=== PATIENT | female | born 1970 | race Native Hawaiian/Other Pacific Islander ===

== ENCOUNTER 2018-11-20 04:22 | Inpatient (IN) | payer OTHER ==
[2018-11-20] VITALS (40 sets, daily range): BP systolic 117–192; BP diastolic 33–123
[~2018-11-20] VITALS: Ht 160 cm; Wt 111.0 kg
[~2018-11-20 04:22] MED LIST: ANTIVERT25 MG PO; CLONIDINE0.1 PO; GABAPENTIN 100100 MG PO; GLUCAGEN1 MG IM; LEVEMIR SUBQ; LIPITOR 20 MG T20 M1 PO; MIDODRINE HCL 55 M1 PO; NEURONTIN 300300 M1 PO; NORCO 5-325 TA1 EACH PO; ONDANSETRON HCL4 M2 PO; OXYCODONE HCL 55 MG PO; PHENERGAN 25 MG25 M1 PO; PLAVIX 75 MG TA75 M1 PO; PROMETHAZINE12.5 M1 PO; PROMS25 WY RECTAL; RENAL CAPS SOFTG1 MG PO; RENVELA800 MG PO; VITAMIN D 5050000 I1 PO; VOLTAREN GEL 1100 G2 TOP; ZANTAC 150MG T150 MG PO
[2018-11-20 05:03] LABS: BE(vivo) -2.8 mmol/L (-2 to +3); PCO2 51.1 mmHg (35.0-45.0); PO2 263.4 mmHg (80.0-100.0); sO2 99.5 % (92.0-98.0)
[2018-11-20 05:09] LABS: HEMATOCRIT 28.9 % (37.0-47.0); HEMOGLOBIN 9.4 gm/dL (12.0-15.0); MCH 31.6 pg (26.0-34.0); MCHC 32.4 g/dL (28.0-37.0); MCV 97.5 fL (80.0-100.0); PLATELET COUNT 234 thou/uL (150-400); RBC 2.96 mil/uL (4.20-5.00); WBC 20.6 thou/uL (4.0-11.0)
[2018-11-20 05:17] LABS: ANION GAP 12 mmol/L (7-16); BUN 50 mg/dL (7-18); CALCIUM 9.6 mg/dL (8.5-10.1); CHLORIDE 103 mmol/L (98-107); CO2 22 mmol/L (21-32); CREATININE 8.9 mg/dL (0.6-1.0); GLUCOSE 193 mg/dL (74-106); SODIUM 137 mmol/L (136-145)
[2018-11-20 05:19] LABS: POTASSIUM 6.4 mmol/L (3.5-5.1)
[2018-11-20 05:24] LABS: APTT 17.2 Seconds (24.5-32.8); PROTIME 9.2 Seconds (9.3-11.4)
--- NOTE | 2018-11-20 05:24 | NUR ---
CONTACTED FAMILY MEMBER LYLE BAEJAYMIESHINE, TOLD ABOUT PT TRANSFER AND ADMISSION WILL BE IN ICU
[2018-11-20 05:26] LABS: ALBUMIN 3.9 g/dL (3.4-5.0); MAGNESIUM 2.4 mg/dL (1.8-2.4); SGOT 36 U/L (15-37); SGPT 40 U/L (30-65); TOTAL BILIRUBIN 0.5 mg/dL (<0.1-1.0); TROPONIN-I <0.06 ng/mL (<0.06)
[2018-11-20] MEDS ORDERED: TYLENOL325 MG PO (05:31)
[2018-11-20 05:33] LABS: ABSOLUTE NEUTROPHILS 18.1 thou/uL (1.4-8.2)
[2018-11-20] MEDS ORDERED: ELIQUIS5 MG PO (05:34)
[2018-11-20 05:35] LABS: ANISOCYTOSIS 1+; PLATELET ESTIMATE NORMAL; POLYCHROMASIA 1+
[2018-11-20] MEDS ORDERED: VITAMIN B12-FO1 EAC1 PO (05:36)
[2018-11-20] MEDS ORDERED: REGLAN 10 MG TA10 MG PO (05:43)
[2018-11-20] MEDS ORDERED: MIRALAX17 GM PO (05:43)
[2018-11-20] MEDS ORDERED: NORVASC5 MG PO (05:44)
[2018-11-20] MEDS ORDERED: OMEPRAZOLE20 M1 PO (05:46)
[2018-11-20] MEDS ORDERED: ZAROXOLYN 5MG TA5 MG PO (05:48)
[2018-11-20] MEDS ORDERED: TOPROL XL25 MG PO (05:49)
[2018-11-20] MEDS ORDERED: VITAMIN D2000 UNIT PO (05:50)
[2018-11-20] MEDS ORDERED: ZOLOFT50 MG PO (05:52)
[2018-11-20] MEDS ORDERED: NOVOLOG100 UNIT/1 SUBQ (05:56)
--- NOTE | 2018-11-20 07:38 | EKG ---
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 : 1970 Requested By: Malachi Guthrie Order Number: [id number] MD: Roderick Montalvo Measurements Intervals [place] Rate: 91 P: 29 CA: 133 QRS: 41 QRSD: 89 T: 62 QT: 379 QTc: 467 Interpretive Statements Sinus rhythm Normal tracing No previous ECG available for comparison Electronically Signed On 11-20-2018 7:37:52 REMOTE SENSING ADVISOR by Roderick Montalvo [email or web address] ��������������������������������������������� <ELECTRONICALLY SIGNED> ���������������������������������������� By: Roderick Montalvo MD, [facility] ��������������������������������������������� 11/20/18 0737 0431 0431 Roderick Montalvo MD, FACC /EPI
--- NOTE | 2018-11-20 09:00 | NUR ---
PATIENT ARRIVED FROM ED ON BIPAP WITH ED STAFF. SHE WAS TRANSFERED TO THE ICU BED WITHOUT COMPLICATIONS, PLACED ON ICU MONITORING. PHYSICIAN HERE TO EVALUATE PATIENT AND DIALYSIS PERSONELL WAITING TO INITIATE DIALYSIS. NURSE TO CONTINUE TO MONITOR PATIENT STATUS.
--- NOTE | 2018-11-20 10:44 | NUR ---
PT TO CT PER RN X 2 AND RESPIRATORY
--- NOTE | 2018-11-20 11:25 | HC ---
[facility] [place] [address] CONSULTATION Name: AYLIN MORALES Room #: 246-P ADM IN M.R.#: [id number] Admission: 11/20/18 ������������������ Attend Phys: Roby Sheets MD Discharge: ������������������ Date of : 68 Report #: [id number] THIS REPORT FOR: //name// CC: Roby Sheets [facility] physician/PCP Daljit Car REASON FOR CONSULTATION: End-stage renal disease, volume overload and hyperkalemia. HISTORY OF PRESENT ILLNESS: The patient is a assisted patient, became short winded, was brought to the Emergency Room, was found to have hyperkalemia, hypertension and shortness of air, felt to be at least partially due to volume overload. She is due for dialysis. She is admitted to the ICU for emergent dialysis. PAST MEDICAL HISTORY: End-stage renal disease, diabetes, hypertension, previous DVT and pulmonary emboli. CT scan today does not show any evidence of pulmonary emboli. MEDICATIONS: List includes insulin, omeprazole 20 mg per day, sevelamer 4 tablets with each meal, metoprolol succinate 50 mg daily, vitamin D3 2000 units daily, Eliquis 5 mg b.i.d., multiple vitamins, atorvastatin 20 mg per day, metoclopramide 10 mg before meals and at bedtime, amlodipine 5 mg per day and MiraLax daily p.r.n. SOCIAL HISTORY: Apparently originally born in I believe [place]. I really do not get much history from her as she is on BiPAP and cannot really communicate very well. She lives in extended care facility. Apparently, there are psychosocial issues. REVIEW OF SYSTEMS: Again, cannot be taken. FAMILY HISTORY: Deferred. PHYSICAL EXAMINATION: GENERAL: This is a short, overweight young lady on BiPAP. Does follow simple commands. SKIN: Unremarkable. SKELETAL: Obese. HEENT: Extraocular movements are full. BiPAP mask in place. NECK: Supple. CHEST: Shows coarse breath sounds. HEART: Regular. ABDOMEN: Soft, nontender. Left arm fistula looks good. EXTREMITIES: There is no peripheral edema. Pulses intact. [facility] [address] [place] [address] CONSULTATION Name: AYLIN MORALES Room #: 246-P [facility] IN .R.#: [id number] Admission: 11/20/18 ������������������ Attend Phys: Roby Sheets MD Discharge: ������������������ Date of : 68 Report #: [id number] LABORATORY DATA: Sodium 137, potassium 6.4, chloride 103, bicarbonate 22, creatinine 8.9, BUN 50. Hemoglobin 9.4, white count 20.6. ASSESSMENT AND PLAN: 1. End-stage renal disease. Will need dialysis emergently. There is a component of volume overload. We will take 3 liters volume off of her. 2. Possible aspiration pneumonia. 3. Hyperkalemia. Dialyze on a 2 K bath. 4. Diabetes mellitus with history of peripheral neuropathy. 5. History of deep venous thrombosis and pulmonary emboli, on Eliquis. ��������������������������������������������� <ELECTRONICALLY SIGNED> ���������������������������������������� By: Daljit Car MD ��������������������������������������������� 11/20/18 1125 0843 1105 Daljit Car MD /nt
--- NOTE | 2018-11-20 14:26 | 2DMMODE ---
[facility] [address] [place] [address] 2 D/M-MODE ECHOCARDIOGRAM Name: AYLIN MORALES Room #: 246-P ADM IN M.R.#: [id number] ������������� Admission: 11/20/18 ������������� Attend Phys: Domingo Montes Discharge: ��� ������������� ��� Date of : 68 Date of Service: 11/20/18 1425 �� Report #: [id number] �������� ��������������������������������������������[id number] THIS REPORT FOR: //name// APPROVED REPORT Study performed: 11/20/2018 12:36:57 EXAM: Comprehensive 2D, Doppler, and color-flow Echocardiogram Patient Location: Bedside Room #: 246 Status: routine BSA: 2.16 HR: 83 bpm BP: 143/61 mmHg Rhythm: NSR Other Information Study Quality: Adequate Technically limited study due to inability to position patient. Risk Factors: Cardiac Risk Factors: HTN, DM Indications Congestive Heart Failure Respiratory Failure ESRD 2D Dimensions IVSd: 12.35 (7-11mm) LVOT Diam: 19.00 (18-24mm) LVDd: 45.77 mm PWd: 12.43 (7-11mm) Ascending Ao: 25.70 (22-36mm) LVDs: 29.97 (25-40mm) Aortic Root: 24.23 mm LV Single Plane 4CH: 55.07 % LV Single Plane 2CH: 54.76 % Biplane EF: 55.4 % Volumes Left Atrial Volume (Systole) Single Plane 4CH: 46.89 mL Single Plane 2CH: 55.69 mL LA ESV Index: 28.00 mL/m2 Aortic Valve [facility] [address] [place] [address] 2 D/M-MODE ECHOCARDIOGRAM Name: AYLIN MORALES Room #: 246-P [facility] IN [facility]#: [id number] ������������� Admission: 11/20/18 ������������� Attend Phys: Domingo Montes Discharge: ��� ������������� ��� Date of : 68 Date of Service: 11/20/18 1425 �� Report #: [id number] �������� ��������������������������������������������[id number] AoV Peak Sg.: 1.60 m/s AO Peak Gr.: 10.28 mmHg LVOT Max P.46 mmHg LVOT Max V: 0.93 m/s WESLEY Vmax: 1.73 cm2 Mitral Valve E/A Ratio: 1.2 MV Decel. Time: 211.43 ms MV E Max Sg.: 1.01 m/s MV A Sg.: 0.85 m/s MV PHT: 61.32 ms IVRT: 59.98 ms TDI E/Lateral E': 12.63 E/Medial E': 12.63 Medial E' Sg.: 0.08 m/s Lateral E' Sg.: 0.08 m/s Pulmonary Vein P Vein S: 0.57 m/s P Vein A: 0.25 m/s P Vein D: 0.49 m/s P Vein A Dur.: 65.7 msec P Vein S/D Ratio: 1.16 Tricuspid Valve RAP Estimate: 7.00 mmHg Left Ventricle The left ventricle is normal size. There is normal LV segmental wall motion. There is normal left ventricular wall thickness. Left ventricular systolic function is normal. The left ventricular ejection fraction is within the normal range. LVEF is 55-60%. Right Ventricle The right ventricle is normal size. The right ventricular systolic function is normal. Atria The left atrium size is normal. The right atrium size is normal. Aortic Valve The aortic valve is normal in structure. No aortic regurgitation is present. There is no aortic valvular stenosis. Mitral Valve The mitral valve is normal in structure. [place] [address] 2 D/M-MODE ECHOCARDIOGRAM Name: AYLIN MORALES Room #: 246-P [facility] IN .R.#: [id number] ������������� Admission: 11/20/18 ������������� Attend Phys: Domingo Montes Discharge: ��� ������������� ��� Date of : 68 Date of Service: 11/20/18 1425 �� Report #: [id number] �������� ��������������������������������������������[id number] regurgitation noted. No evidence of mitral valve stenosis. Tricuspid Valve The tricuspid valve is normal in structure. Trace tricuspid regurgitation. Unable to assess PA pressure. Pulmonic Valve The pulmonary valve is normal in structure. There is no pulmonic valvular regurgitation. Great Vessels The aortic root is normal in size. IVC is normal in size and collapses >50% with inspiration. Pericardium There is no pericardial effusion. <Conclusion> The left ventricle is normal size. There is normal left ventricular wall thickness. Left ventricular systolic function is normal. The right ventricle is normal size. The left atrium size is normal. The aortic valve is normal in structure. There is no mitral valve regurgitation noted. Trace tricuspid regurgitation. ��������������������������������������������� <ELECTRONICALLY SIGNED> ���������������������������������������� By: Dm Au MD ��������������������������������������������� 11/20/18 1425 1425 1425 Dm Au MD /INF
--- NOTE | 2018-11-20 15:29 | NUR ---
CM ASSESSMENT: CASE OPENED FOR DC PLANNING. CLINICAL INFO REVIEWED. PT IS LTC RESIDENT AT [place] AND DIALYZES AT [facility] . UPDATE TO FACILITY ADMISSIONS AND WILL PLAN FOR RETURN TO [place] WHEN MEDICALLY READY.
--- NOTE | 2018-11-20 16:30 | NUR ---
PT. RESIDES AT [place] FAXED CLINICAL UPDATE TO FACILITY AND LEFT MSG. WITH ANSELMO IN ADM. THAT PT. IS ON BIPAP. DCP TO FOLLOW.
--- NOTE | 2018-11-20 17:00 | NUR ---
PATIENT AWAKE AND ALERT. VITAL SIGNS DOCUMENTED. ON A COUPLE LITERS OF OXYGEN SHE IS SATURATING WELL ON O2 SATURATION MONITOR. SHE HAS HAD SOME EPISODES OF INCONTENENCE AND HAS BEEN CLEANED UP. SHE REPOSITIONS SELF IN BED INTERMITTENTLY. ASSESSMENTS DOCUMENTED BY OTHER RN. SHE RECEIVED DIALYSIS TODAY. PAIN WAS EXPRESSED, HOWEVER SHE EXPRESSED THAT IT IS LESS SINCE DIALYSIS FINISHED. PLAN OF CARE IS TO CONTINUE TO MONITOR PATIENT VITAL SIGNS PER PROTOCOL, ASSESSMENTS PER PROTOCOL, MONITOR LABS ORDERED, AND HAVE PATIENT USE BIPAP ORDERED WHEN SLEEPING. PATIENT PROGRESSING TOWARDS PLAN OF CARE.
--- NOTE | 2018-11-20 18:56 | NUR ---
PATIENT TRANSFERED TO [facility], WITH ASSIST OF TWO NURSES, BANK OFFICER, O2 SAT MONITOR, AND ALL PATIENT BELONGINGS. SHE TOLERATED TRANSFER WELL. NURSE WAS INFORMED OF OUR ARRIVAL AND ANOTHER STAFF MEMBER HELPED US TRANSFER PATIENT TO BED IN ROOM. OTHER STAFF MEMBER WAS PLACING PATIENT ON BANK OFFICER UPON OUR DEPATURE FROM ROOM.
--- NOTE | 2018-11-20 20:22 | NUR ---
PATIENT TRANSFERED TO ICU STRIP, ASSESSMENT,VITALS DONE PRIOR. M. 2022.
[2018-11-21] VITALS (7 sets, daily range): BP systolic 139–196; BP diastolic 52–86
--- NOTE | 2018-11-21 05:26 | NUR ---
PATIENT IS ALERT AND ORIENTED. PATIENT IS SBA TO THE BSC PATIENT IS NSR ON TELE. PATIENT IS MWF DIALYSIS. PATIENTS LBM WAS THE 17TH. PATINET IS ON BIPAP HS AND 2L NC DURING THE DAY. PATIENT IS OLIURIC. PATIENT DENIES PAIN. PATIENT IS RESTING COMFORTABLEY IN BED. WCM. PATIENT IS PROGRESSING TO GOALS.
[2018-11-21 06:06] LABS: HEMATOCRIT 28.7 % (37.0-47.0); HEMOGLOBIN 9.6 gm/dL (12.0-15.0); MCH 32.6 pg (26.0-34.0); MCHC 33.5 g/dL (28.0-37.0); MCV 97.3 fL (80.0-100.0); PLATELET COUNT 162 thou/uL (150-400); RBC 2.95 mil/uL (4.20-5.00); RDW 14.8 % (10.5-14.5); WBC 10.7 thou/uL (4.0-11.0)
[2018-11-21 06:17] LABS: ALBUMIN 3.5 g/dL (3.4-5.0); CALCIUM 9.2 mg/dL (8.5-10.1); PHOSPHORUS 5.1 mg/dL (2.5-4.9); POTASSIUM 5.1 mmol/L (3.5-5.1)
[2018-11-21 06:19] LABS: CREATININE 6.4 mg/dL (0.6-1.0)
[2018-11-21 07:03] LABS: ABSOLUTE NEUTROPHILS 9.2 thou/uL (1.4-8.2); MYELOCYTES 1 %
--- NOTE | 2018-11-21 09:22 | H ---
[facility] [place] [address] HISTORY AND PHYSICAL Name: AYLIN MORALES Room #: 354-P ADM IN M.R.#: [id number] Admission: 11/20/18 ������������������ Attend Phys: Roby Sheets MD Discharge: ������������������ Date of : 68 Report #: [id number] THIS REPORT FOR: //name// CC: Roby KOROMA physician/PCP Daljit Car DATE OF SERVICE: 11/20/2018 CHIEF COMPLAINT: Shortness of breath. HISTORY OF PRESENT ILLNESS: The patient is a 48-year-old female transferred from [facility] for evaluation of shortness of breath. She awoke early this morning complaining of trouble breathing to the nursing staff, it is unclear vitals or oxygen saturations at that point. She was directed to the ER. She has had a history of PE and the patient was concerned she was having a recurrence. There have been no reports of nausea or vomiting. PAST MEDICAL HISTORY: End-stage renal disease, diabetes type 2, PE a number of years ago. She is taking anticoagulation with Eliquis, diabetic gastroparesis, anemia of chronic disease, some mild cognitive impairment. PAST SURGICAL HISTORY: Unknown. FAMILY HISTORY: Unknown. SOCIAL HISTORY: She has been living at the [facility] for about 3 years or longer. Prior to that, she apparently bounced in and out of facilities with family. She has had multiple hospitalizations at [facility] for nausea and vomiting. ALLERGIES: None. MEDICATIONS: Renvela, Levemir, Tylenol, Eliquis, Reglan, MiraLax, Norvasc, metoprolol, Zaroxolyn, Zoloft, NovoLog, Zantac, ProAmatine, Antivert, Lipitor, gabapentin. REVIEW OF SYSTEMS: She denies headache, chest pain, abdominal pain, nausea, vomiting, diarrhea, constipation, dysuria, or syncope. OBJECTIVE: VITAL SIGNS: Temperature 36.7, pulse 78, respirations 17, blood pressure 156/48, pulse ox 100% on BiPAP. GENERAL: She is awake and alert. She recognized me. She is undergoing dialysis, echocardiogram and has BiPAP in place. HEAD AND NECK: Unremarkable. [facility] [address] [place] [address] HISTORY AND PHYSICAL Name: AYLIN MORALES Room #: 354-P [facility] IN [facility]#: [id number] Admission: 11/20/18 ������������������ Attend Phys: Roby Sheets MD Discharge: ������������������ Date of : 68 Report #: [id number] LUNGS: Clear. HEART: Regular. ABDOMEN: Soft, normoactive bowel sounds. EXTREMITIES: No edema. LABORATORY DATA: Reviewed. CT of the chest shows no PE. There may be some early pneumonitis. ASSESSMENT: 1. Healthcare-associated pneumonia. 2. Acute hypercapnic respiratory failure. 3. Hyperkalemia. 4. End-stage renal disease. 5. Anemia of chronic disease. 6. Diabetes type 2. 7. History of diabetic gastroparesis. 8. History of pulmonary embolus. 9. History of anticoagulation use. PLAN: She will continue ICU care. We will ask the Pulmonary, Renal, and ID services to see her. We will continue her home medications. ��������������������������������������������� <ELECTRONICALLY SIGNED> ���������������������������������������� By: Roby Sheets MD ��������������������������������������������� 11/21/18 0922 1320 1433 Roby Sheets MD /nt
[2018-11-21 10:11] LABS: HEPATITIS B SURFACE AG Negative (Negative)
--- NOTE | 2018-11-21 10:49 | NUR ---
padma called cathy to see if patient is from their skilled or shelter care. patient is from their ltc and will dc most likely tomorrow.
--- NOTE | 2018-11-21 15:15 | NUR ---
SW reviewed chart and spoke with nursing. Pt was transferred to [facility] from ICU and is progressing towards goals for discharge. Discharge back to [place] is anticipated for tomorrow. network planner updated [place]. MEGGAN met with pt at bedside. Introduced role of SW. Pt is alert/orientated x 4. Pt reports she has lived at [place] for the past 3 years. Pt goes to dialysis -- at the [facility] at [place]. Pt is agreeable with plan to return to [place] tomorrow. MEGGAN left voice message for pt's niece, Brendon ([phone]) and spoke with pt's son, Barbie ([phone]) to provide update and notify of anticipated discharge. Plan is for pt to d/c to [place] tomorrow. MEGGAN is following to assist as needed with discharge planning.
--- NOTE | 2018-11-21 18:13 | HC ---
[facility] [place] [address] CONSULTATION Name: AYLIN MORALES Room #: 354-P ADM IN M.R.#: [id number] Admission: 11/20/18 ������������������ Attend Phys: Roby Sheets MD Discharge: ������������������ Date of : 68 Report #: [id number] THIS REPORT FOR: //name// CC: Roby Sheets [facility] physician/PCP Daljit Car TYPE OF REPORT: Infectious diseases consultation. REASON FOR CONSULTATION: I was asked to evaluate concerning respiratory failure, suspected healthcare-associated pneumonia and end-stage renal disease. HISTORY OF PRESENT ILLNESS: The patient was a 48-year old with a history of pulmonary emboli, end-stage renal disease and hypertension; who presents with acute onset of shortness of breath. No definite chest pain. No fever or chills. Hemodynamically, she has been stable, actually has been more hypertensive. She has been on anticoagulation with Eliquis. No cough. No hemoptysis. Now on BiPAP with improved oxygenation. Denies any nausea, vomiting or diarrhea. No abdominal pain. Undergoes dialysis 3 days a week. She has had no travel outside of her long-term. Unclear when her last pulmonary embolus was. REVIEW OF SYSTEMS: Ten-point review was negative other than what is described above. ALLERGIES: None. MEDICATIONS: As noted on her MAR, having been given vancomycin and Zosyn in the Emergency Room. PAST MEDICAL HISTORY: Includes hypertension, end-stage renal disease and pulmonary emboli. FAMILY HISTORY: Noncontributory. SOCIAL HISTORY: Nonsmoker. No significant alcohol intake. PHYSICAL EXAMINATION: VITAL SIGNS: Temperature 98 degrees, pulse 78, blood pressure 156/48 and respiratory rate 17 on 60% BiPAP. SKIN: Without rash or decubitus. HEENT: Eyes, without scleral icterus. No conjunctivitis. Mouth, without mucositis. NECK: Supple. LUNGS: Crackles in the bases, mostly on the right. No consolidation. HEART: Regular without appreciable murmur, gallop or rub. ABDOMEN: Obese, soft and nontender. No hepatosplenomegaly or mass appreciated. [facility] [address] [place] [address] CONSULTATION Name: AYLIN MORALES Room #: 354-P [facility] IN M.R.#: [id number] Admission: 11/20/18 ������������������ Attend Phys: Roby Sheets MD Discharge: ������������������ Date of : 68 Report #: [id number] GENITOURINARY: External genitalia without mass lesion or rash. No rectal examination performed. The patient was on dialysis via left upper extremity AV fistula, which was functioning well. The area was nontender. No palpable adenopathy. NEUROLOGICAL: Cranial nerves intact. Strength in her upper and lower extremities was normal. Sensation to touch was normal in both upper and lower extremities. LABORATORY STUDIES: Chest x-ray shows predominant right-sided infiltrate, mostly in the right base. Some atelectasis. Increased vascular pattern. BNP is 20,748. Hemoglobin 9.4; WBC 20.6 and platelet count 234,000. INR 1. Sodium 137, potassium 6.4, bicarbonate 22, creatinine 8.9 and alkaline phosphatase 193. ALT 40. ABG on 60% BiPAP, pO2 was 263, pCO2 of 51 and pH 7.29. Blood cultures are negative to date. IMPRESSION: 1. A 48-year-old with respiratory failure, bilateral infiltrates, right greater than left and history of pulmonary emboli. Congestive heart failure versus healthcare-associated pneumonia versus pulmonary emboli would be most likely cause of her presentation. She does have a leukocytosis, which would fit best with pneumonia. No other source evident by history or exam. 2. End-stage renal disease. 3. Hypertension. 4. Previous pulmonary emboli, now on anticoagulation. RECOMMENDATIONS: We will continue ICU support and BiPAP as needed for control of her respiratory status. We would image by CAT scan to further evaluate her pulmonary status. Await cultures of blood, urine and sputum. Serial chest x-ray and CBC. We will repeat her chest x-ray after dialysis. Echocardiogram with the above unremarkable. ��������������������������������������������� <ELECTRONICALLY SIGNED> ���������������������������������������� By: Ben Rothman MD ��������������������������������������������� 11/21/18 1813 1010 09 Ben Rothman MD /nt
--- NOTE | 2018-11-21 18:30 | NUR ---
PT PROGRESSING WELL. UP TO THE CHAIR FOR SEVERAL HOURS. EATING AND DRINKING OK W/O NAUSEA/VOMITING. PLAN FOR DC TOMORROW.
--- NOTE | 2018-11-22 01:51 | NUR ---
PATIENT IS ALERT AND ORIENTED. PATIENT IS ON 3L NC DURING THE DAY. PATIENTS LBM WAS THE 19TH. PATIENT HAS A LT AV FISTULA. PATIENT IS ACHS BUT ONLY HAS INSULING AC. PATIENT IS DIALYSIS MWF. PATIENT IS PENDING DISCHARGE TODAY. PATIENT DENIES PAIN. WCM. PATIENT IS PROGRESSING TO GOALS.
[2018-11-22 04:38] VITALS: BP 176/77
[2018-11-22 04:47] LABS: ALBUMIN 3.1 g/dL (3.4-5.0); CALCIUM 9.3 mg/dL (8.5-10.1); PHOSPHORUS 4.9 mg/dL (2.5-4.9); POTASSIUM 5.1 mmol/L (3.5-5.1)
[2018-11-22 04:50] LABS: CREATININE 8.1 mg/dL (0.6-1.0); HEMATOCRIT 26.2 % (37.0-47.0); HEMOGLOBIN 8.5 gm/dL (12.0-15.0); MCH 31.9 pg (26.0-34.0); MCHC 32.6 g/dL (28.0-37.0); MCV 97.6 fL (80.0-100.0); RBC 2.68 mil/uL (4.20-5.00); WBC 9.8 thou/uL (4.0-11.0)
[2018-11-22] MEDS ORDERED: ACETAMINOPHEN325 M1 PO (11:47)
--- NOTE | 2018-11-22 13:41 | NUR ---
DISCHARGE NOTE: MEGGAN reviewed chart and spoke with nursing. Pt has discharge orders to return to [place] today. Pt had dialysis this morning. MEGGAN faxed discharge orders/summary to [place]. W/c van transportation will grain picker pt between [phone] today. MEGGAN met with pt at bedside to provide update. Pt is aware and agreeable with discharge plan. MEGGAN faxed clinical info/flow sheet/discharge order/summary to the [facility]. MEGGAN spoke with charge nurse at the dialysis clinic to notify of pt's discharge. Pt will resume regular outpatient dialysis on Tuesday. Chart copy ordered. Nursing provided with number to call report. No additional SW needs identified at this time, but is available to assist should needs arise.
--- NOTE | 2018-11-22 16:32 | NUR ---
Assumed care of Pt at 0700. 3L taken off this AM during dialysis. pt breathing comfortably on 2L NC. up w/ 1 SBA to BSC. voicing no concerns. d/c back to [place] planned for today. report called to facility to receiving RN. pt progressing toward poc goals.
--- NOTE | 2018-11-23 10:42 | D ---
[facility] [place] [address] DISCHARGE SUMMARY Name: AYLIN MORALES Room #: 354-P [facility] M.R.#: [id number] Admission: 11/20/18 ������������������ Attend Phys: Roby Sheets MD Discharge: 11/22/18 ������������������ Date of : 68 Report #: [id number] THIS REPORT FOR: //name// CC: Roby Sheets [facility] physician/PCP Daljit Car FINAL DIAGNOSES: 1. Acute hypercapnic hypoxic respiratory failure. 2. Pulmonary edema. 3. Hypertension. 4. End-stage renal disease. 5. Diabetes type 2. 6. Diabetic gastroparesis. HOSPITAL COURSE: The patient was admitted with shortness of breath with a working diagnosis of aspiration pneumonia; however, her ABG revealed more of a hypercapnic hypoxic respiratory failure and x-ray was more consistent with pulmonary edema. She responded significantly with her routine dialysis session. Her other medications were continued from home. I had the Pulmonary and Renal service follow her. Ultimately, medical opinion was that this was more of a pulmonary edema situation rather than infection. There were no reports from the patient or the facility of vomiting or aspiration. She was weaned back to her 2 liters nasal cannula and was back in her normal state. PHYSICAL EXAMINATION: GENERAL: On the day of discharge, she had completed dialysis and her vital signs were stable. She was alert and oriented to situation. LUNGS: Clear. HEART: Had regular sounds. ABDOMEN: Soft with normal bowel sounds. EXTREMITIES: Showed no edema. DISPOSITION: She will return to [facility] with diabetic renal diet. I will follow her stay there. Therapies as indicated, oxygen at 2 liters. I have signed her transfer medication list. ��������������������������������������������� <ELECTRONICALLY SIGNED> ���������������������������������������� By: Roby Sheets MD ��������������������������������������������� 11/23/18 1042 1220 1227 Roby Sheets MD /nt
== END 2018-11-22 18:16 | DRG 193 ==
LOC: ER 04:22 → 3W 05:16 → EROBS 05:16 → ICU 05:16 → 3W 18:36
PROVIDERS: Emergency Medicine; Internal Medicine Nephrology; Specialist; ADMIT Internal Medicine Geriatric Medicine
PROC: 5A1D70Z Performance of Urinary Filtration, Intermittent, Less than 6 Hours Per Day (ICD-10-PCS; principal; 2018-11-20)
PROC: 5A09357 Assistance with Respiratory Ventilation, Less than 24 Consecutive Hours, Continuous Positive Airway Pressure (ICD-10-PCS; principal; 2018-11-20)
PROC: 5A1D70Z Performance of Urinary Filtration, Intermittent, Less than 6 Hours Per Day (ICD-10-PCS; 2018-11-21)
PROC: 5A09357 Assistance with Respiratory Ventilation, Less than 24 Consecutive Hours, Continuous Positive Airway Pressure (ICD-10-PCS; 2018-11-21)
PROC: 5A09357 Assistance with Respiratory Ventilation, Less than 24 Consecutive Hours, Continuous Positive Airway Pressure (ICD-10-PCS; 2018-11-22)
DX: J18.9 Pneumonia, unspecified organism (principal); J96.02 Acute respiratory failure with hypercapnia; N18.6 End stage renal disease; J96.01 Acute respiratory failure with hypoxia; E66.2 Morbid (severe) obesity with alveolar hypoventilation; I13.2 Hypertensive heart and chronic kidney disease with heart failure and with stage 5 chronic kidney disease, or end stage renal disease; Z68.41 Body mass index [BMI] 40.0-44.9, adult; E11.22 Type 2 diabetes mellitus with diabetic chronic kidney disease; D63.8 Anemia in other chronic diseases classified elsewhere; D72.829 Elevated white blood cell count, unspecified; E11.42 Type 2 diabetes mellitus with diabetic polyneuropathy; K31.84 Gastroparesis; E11.43 Type 2 diabetes mellitus with diabetic autonomic (poly)neuropathy; E87.5 Hyperkalemia; I50.9 Heart failure, unspecified; Z86.711 Personal history of pulmonary embolism; Z79.01 Long term (current) use of anticoagulants; Z79.899 Other long term (current) drug therapy; Z79.4 Long term (current) use of insulin; Z86.718 Personal history of other venous thrombosis and embolism
CPT/HCPCS: 10779; 10879; 32100

== ENCOUNTER 2018-12-01 16:15 | Inpatient (IN) | payer OTHER ==
[~2018-12-01] VITALS: Ht 160 cm; Wt 58.5 kg
--- NOTE | ~2018-12-01 | HC ---
[facility] [address] CONSULTATION Name: AYLIN MORALES Room #: 418-P ADM IN M.R.#: [id number] Admission: 12/01/18 ������������������ Attend Phys: Roby Sheets MD Discharge: ������������������ Date of : 68 Report #: [id number] THIS REPORT FOR: //name// CC: Roby Sheets [facility] physician/PCP REASON FOR CONSULTATION: End-stage renal disease. HISTORY OF PRESENT ILLNESS: A 48-year-old with past medical history of end-stage renal disease, maintained on hemodialysis every Tuesday, Tuesday and Tuesday. She dialyzed yesterday and did not feel well after that. She runs a low blood pressure. She had some headache and dizziness and was sent for further evaluation and management. She was admitted to the hospital back on November for volume overload. She is known to have end-stage renal disease and has been maintained on hemodialysis over the last 1 year. Her end-stage renal disease was attributed to diabetes mellitus. PAST MEDICAL HISTORY: 1. Diabetes mellitus. 2. Hypertension. 3. End-stage renal disease, maintained on hemodialysis every Tuesday, Tuesday and Tuesday. 4. Pulmonary embolism. 5. Previous DVTs. MEDICATIONS: 1. Metoprolol. 2. Renvela. 3. Amlodipine. 4. Metolazone. 5. Clonidine. 6. Cholecalciferol. REVIEW OF SYSTEMS: GENERAL: No fever but significant for weakness. CARDIOVASCULAR: No chest pain or palpitation. PULMONARY: No cough or hemoptysis. GASTROINTESTINAL: No nausea, but she had some vomiting yesterday. SOCIAL HISTORY: She resides in [place]. No drug or alcohol abuse. PAST SURGICAL HISTORY: 1. AV dialysis access. 2. Back surgery. [facility] [address] [place] [address] CONSULTATION Name: AYLIN MORALES Room #: 418-P [facility] IN .R.#: [id number] Admission: 12/01/18 ������������������ Attend Phys: Roby Sheets MD Discharge: ������������������ Date of : 68 Report #: [id number] ALLERGIES: None. PHYSICAL EXAMINATION: GENERAL: She is alert and oriented. VITAL SIGNS: Blood pressure is 136/71. HEAD AND NECK: No jugular venous distention. CHEST: No crackles. CARDIOVASCULAR: No rub. ABDOMEN: Soft. No tenderness. LOWER EXTREMITIES: No edema. LABORATORY DATA: Laboratory values reviewed. She has a mild leukocytosis at 16.8. Blood sugar is elevated. She has a calcium of 11.1 yesterday. Total protein was also elevated. RADIOLOGICAL DATA: Chest x-ray with no infiltrate. CT with no acute changes. ASSESSMENT, IMPRESSION AND PLAN: 1. End-stage renal disease. 2. Hypotension. 3. Hypercalcemia. 4. Leukocytosis. 5. Discontinue some of her blood pressure medication. 6. Discontinue vitamin D, given her hypercalcemia. Primary team is addressing her leukocytosis. 7. Dialysis as usual every Tuesday, Tuesday and Tuesday. ��������������������������������������������� ���������������������������������������� By: ��������������������������������������������� 0746 28 Pablito Alvares MD /lloyd
[~2018-12-01 16:15] MED LIST changes: +ACETAMINOPHEN325 M1 PO; +ELIQUIS5 MG PO; +MIRALAX17 GM PO; +NORVASC5 MG PO; +NOVOLOG100 UNIT/1 SUBQ; +OMEPRAZOLE20 M1 PO; +REGLAN 10 MG TA10 MG PO; +TOPROL XL25 MG PO; +TYLENOL325 MG PO; +VITAMIN B12-FO1 EAC1 PO; +VITAMIN D2000 UNIT PO; +ZAROXOLYN 5MG TA5 MG PO; +ZOLOFT50 MG PO
--- NOTE | 2018-12-01 16:39 | NUR ---
ASSUMED PT CARE FROM [facility]
[2018-12-01 16:43] LABS: HEMATOCRIT 38.3 % (37.0-47.0); HEMOGLOBIN 12.9 gm/dL (12.0-15.0); MCH 32.3 pg (26.0-34.0); MCHC 33.6 g/dL (28.0-37.0); MCV 96.1 fL (80.0-100.0); RBC 3.99 mil/uL (4.20-5.00); RDW 14.1 % (10.5-14.5); WBC 16.8 thou/uL (4.0-11.0)
[2018-12-01 16:48] LABS: ANION GAP 12 mmol/L (7-16); BUN 27 mg/dL (7-18); CALCIUM 11.1 mg/dL (8.5-10.1); CHLORIDE 96 mmol/L (98-107); CO2 28 mmol/L (21-32); CREATININE 6.6 mg/dL (0.6-1.0); GLUCOSE 256 mg/dL (74-106); POTASSIUM 4.6 mmol/L (3.5-5.1); SODIUM 136 mmol/L (136-145)
[2018-12-01 16:58] LABS: ALBUMIN 4.9 g/dL (3.4-5.0); LIPASE 292 U/L (73-393); SGOT 23 U/L (15-37); SGPT 25 U/L (30-65); TOTAL BILIRUBIN 0.5 mg/dL (<0.1-1.0); TOTAL PROTEIN 9.5 g/dL (6.4-8.2); TROPONIN-I <0.06 ng/mL (<0.06)
[2018-12-01 18:06] VITALS: BP 158/77
[2018-12-01 18:07] LABS: URINE BILIRUBIN NEGATIVE (Negative); URINE BLOOD 2+ (Negative); URINE CLARITY SL CLOUDY; URINE COLOR YELLOW; URINE GLUCOSE-RANDOM* NEGATIVE (Negative); URINE KETONES NEGATIVE (Negative); URINE NITRITE-REFLEX NEGATIVE (Negative); URINE PROTEIN (DIPSTICK) 3+ (Negative); URINE UROBILINOGEN 0.2 E.U./dl (0.2-1.0)
[2018-12-01 18:10] LABS: URINE LEUKOCYTES-REFLEX 1+ (Negative)
[2018-12-01 18:33] LABS: CASTS None Seen /LPF (None Seen); CRYSTALS None Seen /LPF (None Seen); SQUAMOUS 0-3 Few /LPF (0-3); URINE RBC 0-2 Rare /HPF (0-2)
[2018-12-01 18:34] LABS: URINE WBC-REFLEX 6-15 Few /HPF (0-5)
[2018-12-01 20:00] VITALS: BP 117/81
--- NOTE | 2018-12-02 02:01 | NUR ---
PT ARRIVED ON UNIT 1900. PT ALERT AND ORIENTED. PT COMPLAINED OF N/V. PT HAD TWO EPISODESOF VOMITING AFTER ARRIVAL. NAUSEA RELEIVED WITH MEDICATION. PT ALSO COMPLAINS OF DIZZINESS. PT ON 2L NC. VSS. ASSESSMENT COMPLETED. ADMISSION COMPLETED. PT BLOOD SUGAR ELEVATED, 20U LANTUS ADMINISTERED. BRUIT AND THRILL PRESENT IN FISTULA TO DANIEL. PT CALL LIGHT AND PERSONAL BELONINGS WITHIN REACH. WILL CONTINUE POC UNTIL EOS.
[2018-12-02 04:26] VITALS: BP 136/71
[2018-12-02 07:47] VITALS: BP 96/49
--- NOTE | 2018-12-02 09:01 | NUR ---
ASSUMED CARE OF PT AT 0700. ASSESSMENT COMPLETED. A&O,X4. C/O DIZZINESS, MEDS GIVEN ORDERED. ACHS, INSULIN GIVEN PER SLIDING SCALE. LEFT UPPER ARM FISTULA, BRUIT AND THRILL PRESENT. LEFT LIMB ALERT BRACELET IN PLACE. 2 L NC, BASELINE OXYGEN USE AT HOME. PATIENT STATES THEY ARE FROM [facility]. POSSIBLE D/C TODAY. WILL CONTINUE TO MONITOR.
[2018-12-02 10:08] LABS: HEMATOCRIT 35.2 % (37.0-47.0); HEMOGLOBIN 11.6 gm/dL (12.0-15.0); MCH 31.9 pg (26.0-34.0); MCV 96.8 fL (80.0-100.0); RBC 3.64 mil/uL (4.20-5.00); RDW 14.6 % (10.5-14.5); WBC 15.1 thou/uL (4.0-11.0)
[2018-12-02 16:29] VITALS: BP 155/77
--- NOTE | 2018-12-02 19:11 | NUR ---
END OF SHIFT. PT SLEPT THE MAJORITY OF THE DAY. GOOD APPETITE NOTED. ACHS, INSULIN GIVEN ORDERED. C/O DIZZINESS. VSS.
[2018-12-02 20:00] VITALS: BP 92/54
[2018-12-03 04:37] VITALS: BP 163/92
--- NOTE | 2018-12-03 05:15 | NUR ---
ASSUMED PT CARE 1900. PT ALERT AND ORIENTED, DROWSEY. REASSESSMENT COMPLETED. PT STILL COMPLAINING OF DIZZINESS. PT ON 2L OF O2 VIA NC. VSS. PT CALL LIGHT AND PERSONAL BELONINGS WITHIN REACH, WILL CONTINUE POC UNTIL EOS.
[2018-12-03 07:25] VITALS: BP 162/76
--- NOTE | 2018-12-03 08:32 | H ---
[facility] [address] [place] [address] HISTORY AND PHYSICAL Name: AYLIN MORALES Room #: 418-P ADM IN M.R.#: [id number] Admission: 12/01/18 ������������������ Attend Phys: Roby Sheets MD Discharge: ������������������ Date of : 68 Report #: [id number] THIS REPORT FOR: //name// CC: Roby KOROMA physician/PCP DATE OF SERVICE: 12/01/2018 CHIEF COMPLAINT: Nausea and dizziness. HISTORY OF PRESENT ILLNESS: The patient is a 48-year-old female from [facility] who sent to the Emergency Room with complaints of nausea and vomiting and dizziness. She has end-stage renal disease and received her normal hemodialysis at [facility] yesterday morning. At the end of the procedure, she began to complain of nausea. By the time she returned to her room, she had some vomiting, just bile contents per reports. The nursing center called stating that she had been complaining of nausea and had several vomiting episodes over about a 3-hour time period post dialysis. For this reason, she was sent to the Emergency Room. This has been an intermittently ongoing problem for her at [facility]. She has had multiple admissions to [facility] with similar problems. She has had extensive GI workup in the past with no definitive diagnosis, although in the late 2018, there was a diagnosis of gastroparesis and Reglan was started. However, this has not completely controlled her symptoms. PAST MEDICAL HISTORY: End-stage renal disease, diabetes type 2, hypertension, anemia of chronic disease. She has a history of DVT and pulmonary embolus several years ago that predated her admission to [facility]. I do not have full records of those reports. She does use chronic anticoagulation with Eliquis. PAST SURGICAL HISTORY: AV fistula. FAMILY HISTORY: Unknown. SOCIAL HISTORY: No chronic alcohol or tobacco use. She has been living at [facility] for about 2-3 years. ALLERGIES: Please see the list. MEDICATIONS: Please see the nursing list. REVIEW OF SYSTEMS: She was complaining of dizziness. No chest pain, shortness of breath, abdominal pain, dysuria, myalgias, syncope, fall. PHYSICAL EXAMINATION: VITAL SIGNS: Nursing vital signs reviewed in the electronic record. [address] [address] HISTORY AND PHYSICAL Name: AYLIN MORALES Room #: 418-P [facility] IN ..#: [id number] Admission: 12/01/18 ������������������ Attend Phys: Roby Sheets MD Discharge: ������������������ Date of : 68 Report #: [id number] GENERAL: She was resting in bed, in no distress. HEAD AND NECK: Unremarkable. LUNGS: Clear. HEART: Regular. ABDOMEN: Soft, normoactive bowel sounds. EXTREMITIES: Showed no edema. NEUROLOGIC: Cranial nerves intact. Speech is fluent. She recognized me as her doctor. Global strength intact. PERTINENT LABORATORY DATA: Included white count of 16,000. Creatinine was elevated consistent with end-stage renal disease. ASSESSMENT: 1. Persistent nausea and vomiting. 2. Cystitis. 3. Hypertension. 4. Diabetes type 2. 5. End-stage renal disease. 6. Anemia of chronic disease. PLAN: Initially when I saw her this morning, she was feeling improved and tentative plans were to discharge home if she can tolerate a diet. However, according to nursing, she continues to complain of dizziness with movement in bed. Her white count is still elevated, but down to 15,000. A urine culture is pending. For now, continue hospitalization with medical management. ��������������������������������������������� <ELECTRONICALLY SIGNED> ���������������������������������������� By: Roby Sheets MD ��������������������������������������������� 12/03/18 0832 1325 1344 Roby Sheets MD /nt
[2018-12-03 14:28] LABS: HEMATOCRIT 35.6 % (37.0-47.0); HEMOGLOBIN 11.7 gm/dL (12.0-15.0); MCH 31.8 pg (26.0-34.0); MCHC 32.8 g/dL (28.0-37.0); MCV 97.1 fL (80.0-100.0); RBC 3.67 mil/uL (4.20-5.00); RDW 14.4 % (10.5-14.5); WBC 11.7 thou/uL (4.0-11.0)
[2018-12-03 16:00] VITALS: BP 178/70
--- NOTE | 2018-12-03 19:23 | EKG ---
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 Associate: ALISE : 1970 Requested By: Louise Molina Order Number: [id number] MD: Wilbur Simpson Measurements Intervals [place] Rate: 79 P: 41 ND: 138 QRS: 28 QRSD: 90 T: 65 QT: 409 QTc: 469 Interpretive Statements Sinus rhythm LVH by voltage Early transition Nonspecific ST-T wave changes Compared to ECG 11/20/2018 04:31:51 Left ventricular hypertrophy now present Electronically Signed On 12-03-2018 19:23:42 HEAD OF MAINTENANCE by Wilbur Simpson [email or web address] ��������������������������������������������� <ELECTRONICALLY SIGNED> ���������������������������������������� By: Wilbur Simpson MD ��������������������������������������������� 12/03/18 1923 1630 163 Wilbur Simpson MD /EPI
--- NOTE | 2018-12-03 20:13 | NUR ---
PT ASSESSED AT START OF SHIFT. HAD DIZZINESS THIS AM WHEN DR. NESS HERE BUT HAS SINCE STOPPED. MECLIZINE RESUMED. PT EATING AND DRINKING W/O NAUSEA. PLAN FOR DIALYSIS TOMORROW AND THEN DC.
[2018-12-03 20:49] VITALS: BP 171/82
[2018-12-04 00:51] VITALS: BP 135/67
--- NOTE | 2018-12-04 03:46 | NUR ---
ASSUMED PT CARE 1900. PT ALERT AND ORIENTED. VSS- BP ELEVATED, REASSESSED AT MIDNIGHT-SEE CHARTING. PT ON 2L O2 VIA NC. REASSESSMENT COMPLETED. PT CALL LIGHT AND PERSONAL BELONGINGS WITIN REACH. WILL OCNTINUE POC UNTIL EOS.
[2018-12-04 05:54] VITALS: BP 175/73
[2018-12-04 07:44] VITALS: BP 175/80
[2018-12-04] MEDS ORDERED: CIPRO250 M1 PO (13:23)
--- NOTE | 2018-12-04 14:03 | NUR ---
Assumed pt car at 7am.Pt left for hemodialysis at the beginning of shift and returned to room 4 hours later in stable condition.Assessment completed.vss. Dr Sheets here, dc order noted.Pt to be started on cipro po today related to uti.assistant center manager arranged for transfer to [place] at 1530 today.Report off to Gracia wagoner.Pt notified about dc .Will continue to monitor.
--- NOTE | 2018-12-04 14:31 | NUR ---
INITIAL ASSESSMENT: Pt evaluated for d/c planning needs. 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 She has dialysis MWF. Asked menu planner to make arrangements for pt return. No other needs identified.
--- NOTE | 2018-12-04 15:04 | NUR ---
PT. DISCHARGING TODAY BACK TO [facility] SKILLED. FAXED DC ORDERS/SUMMARY TO FACILITY AND SPOKE WITH ANSELMO IN ADM. SHE RECEIVED DC ORDERS AND SET UP TRANSPORT VIA [facility] FOR 0 TODAY. NOTIFIED FAMILY (VALERI) OF DISCHARGE AND TIME OF TRANSPORT. UNIT NOTIFIED AND CHART COPY PER US. RN TO CALL REPORT TO [phone].
--- NOTE | 2018-12-06 12:37 | D ---
[facility] [place] [address] DISCHARGE SUMMARY Name: AYLIN MORALES Room #: 418-P [facility] IN M.R.#: [id number] Admission: 12/01/18 ������������������ Attend Phys: Roby Sheets MD Discharge: 12/04/18 ������������������ Date of : 68 Report #: [id number] THIS REPORT FOR: //name// CC: Roby Sheets [facility] physician/PCP DATE OF SERVICE: 12/04/2018 FINAL DIAGNOSES: 1. Urinary tract infection. 2. Vertigo. 3. Nausea and vomiting. 4. End-stage renal disease. 5. Hypertension. 6. Diabetes type 2. HOSPITAL COURSE: She was admitted through the Emergency Room with persistent nausea and vomiting post-dialysis on her usual schedule day. With symptomatic treatment, she was improved overnight but was still experiencing symptoms of vertigo and dizziness even with movement in the bed, low dose meclizine was ordered. A urine culture was pending from ER and eventually grew an E. coli and VRE. Oral Cipro was initiated. She received hemodialysis on Tuesday. The Renal Service adjusted her antihypertensive regimen and felt there is likely a degree of autonomic instability. PHYSICAL EXAMINATION: GENERAL: On the day of discharge, she was awake and alert. Post-dialysis, eating without nausea or dizziness. VITAL SIGNS: Stable. LUNGS: Clear. HEART: Regular. ABDOMEN: Soft, normoactive bowel sounds. EXTREMITIES: No edema. DISPOSITION: She will return to [facility]. I signed and prepared all other orders. Renal diet. Activity as tolerated. I will follow her stay there. She will have Cipro for 5 more days at the facility. ��������������������������������������������� <ELECTRONICALLY SIGNED> ���������������������������������������� By: Roby Sheets MD ��������������������������������������������� 12/06/18 1237 1325 3067 Roby Sheets MD /nt
== END 2018-12-04 16:13 | DRG 73 ==
LOC: ER 16:15 → 4E 17:38 → EROBS 17:38 → 4E 18:44
PROVIDERS: Student in an Organized Health Care Education/Training Program; ADMIT Internal Medicine Geriatric Medicine
PROC: 5A1D70Z Performance of Urinary Filtration, Intermittent, Less than 6 Hours Per Day (ICD-10-PCS; principal; 2018-12-03)
DX: G90.8 Other disorders of autonomic nervous system (principal); N18.6 End stage renal disease; I12.0 Hypertensive chronic kidney disease with stage 5 chronic kidney disease or end stage renal disease; I95.9 Hypotension, unspecified; D63.8 Anemia in other chronic diseases classified elsewhere; B96.20 Unspecified Escherichia coli [E. coli] as the cause of diseases classified elsewhere; N30.90 Cystitis, unspecified without hematuria; E83.52 Hypercalcemia; E11.22 Type 2 diabetes mellitus with diabetic chronic kidney disease; E87.8 Other disorders of electrolyte and fluid balance, not elsewhere classified; J45.909 Unspecified asthma, uncomplicated; Z79.84 Long term (current) use of oral hypoglycemic drugs; Z79.4 Long term (current) use of insulin; Z86.718 Personal history of other venous thrombosis and embolism; Z86.711 Personal history of pulmonary embolism
CPT/HCPCS: 10084; 32100

== ENCOUNTER 2018-12-20 06:23 | Emergency (ER) | payer OTHER ==
[~2018-12-20] VITALS: Ht 160 cm; Wt 106.6 kg
[~2018-12-20 06:23] MED LIST changes: +CIPRO250 M1 PO
[2018-12-20 07:08] LABS: HEMATOCRIT 33.8 % (37.0-47.0); HEMOGLOBIN 11.3 gm/dL (12.0-15.0); MCH 32.4 pg (26.0-34.0); MCHC 33.5 g/dL (28.0-37.0); MCV 96.6 fL (80.0-100.0); RBC 3.5 mil/uL (4.20-5.00); WBC 8.4 thou/uL (4.0-11.0)
[2018-12-20 07:23] LABS: ANION GAP 12 mmol/L (7-16); BUN 43 mg/dL (7-18); CALCIUM 9.6 mg/dL (8.5-10.1); CHLORIDE 98 mmol/L (98-107); CO2 29 mmol/L (21-32); CREATININE 9.8 mg/dL (0.6-1.0); GLUCOSE 148 mg/dL (74-106); POTASSIUM 4.8 mmol/L (3.5-5.1); SODIUM 139 mmol/L (136-145)
[2018-12-20 07:31] LABS: TROPONIN-I <0.06 ng/mL (<0.06)
[2018-12-20 07:38] LABS: APTT 28.6 Seconds (24.5-32.8)
[2018-12-20 09:17] LABS: URINE BILIRUBIN NEGATIVE (Negative); URINE BLOOD 1+ (Negative); URINE CLARITY CLEAR; URINE COLOR YELLOW; URINE GLUCOSE-RANDOM* 1+ (Negative); URINE KETONES NEGATIVE (Negative); URINE NITRITE-REFLEX NEGATIVE (Negative); URINE PROTEIN (DIPSTICK) 2+ (Negative); URINE SPECIFIC GRAVITY 1.015 (1.005-1.035); URINE UROBILINOGEN 0.2 E.U./dl (0.2-1.0)
[2018-12-20 09:18] LABS: URINE LEUKOCYTES-REFLEX 1+ (Negative)
[2018-12-20 09:31] LABS: CASTS None Seen /LPF (None Seen); CRYSTALS None Seen /LPF (None Seen); SQUAMOUS 0-3 Few /LPF (0-3)
[2018-12-20 09:32] LABS: BACTERIA-REFLEX 1-9 Few /HPF (None Seen); URINE RBC 0-2 Rare /HPF (0-2); URINE WBC-REFLEX 0-5 Rare /HPF (0-5)
[2018-12-20] MEDS ORDERED: ZOFRAN ODT4 MG PO (10:16)
[2018-12-20] MEDS ORDERED: ANTIVERT25 MG PO (10:16)
[2018-12-20 11:05] VITALS: BP 205/71
--- NOTE | 2018-12-20 17:15 | EKG ---
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 : 1970 Requested By: Yogesh Camarillo Order Number: [id number] MD: Roderick Montalvo Measurements Intervals [place] Rate: 91 P: 32 CT: 163 QRS: 39 QRSD: 88 T: 64 QT: 367 QTc: 452 Interpretive Statements Sinus rhythm Atrial premature complex Compared to ECG 12/01/2018 16:30:26 Atrial premature complex(es) now present Electronically Signed On 12-20-2018 17:15:37 CDT by Roderick Montalvo [email or web address] ��������������������������������������������� <ELECTRONICALLY SIGNED> ���������������������������������������� By: Roderick Montalvo MD, [facility] ��������������������������������������������� 12/20/18 1715 8 8 Roderick Montalvo MD, FACC /EPI
== END 2018-12-20 11:05 | disposition home or self-care (01) ==
LOC: ER 06:23
PROVIDERS: Emergency Medicine
DX: I12.0 Hypertensive chronic kidney disease with stage 5 chronic kidney disease or end stage renal disease (principal); N18.6 End stage renal disease; R11.2 Nausea with vomiting, unspecified; R42 Dizziness and giddiness; E11.22 Type 2 diabetes mellitus with diabetic chronic kidney disease; J45.909 Unspecified asthma, uncomplicated; Z79.4 Long term (current) use of insulin

== ENCOUNTER 2019-04-27 14:15 | Emergency (ER) | payer OTHER ==
[~2019-04-27] VITALS: Ht 157.5 cm; Wt 103.0 kg
[~2019-04-27 14:15] MED LIST changes: +ZOFRAN ODT4 MG PO
[2019-04-27 16:11] LABS: ABSOLUTE NEUTROPHILS 6.4 thou/uL (1.4-8.2); BASOPHILS 0.5 % (0.0-2.0); EOSINOPHILS 1.5 % (0.0-3.0); HEMATOCRIT 33.1 % (37.0-47.0); HEMOGLOBIN 10.9 gm/dL (12.0-15.0); LYMPHOCYTES 13.1 % (24.0-44.0); MCH 31.9 pg (26.0-34.0); MCHC 32.8 g/dL (28.0-37.0); MCV 97.1 fL (80.0-100.0); PLATELET COUNT 257 thou/uL (150-400); POLYS 73.9 % (36.0-66.0); RBC 3.41 mil/uL (4.20-5.00); RDW 14.4 % (10.5-14.5); WBC 8.7 thou/uL (4.0-11.0)
[2019-04-27 16:21] LABS: CALCIUM 10.3 mg/dL (8.5-10.1); CREATININE 6.7 mg/dL (0.6-1.0); POTASSIUM 5.2 mmol/L (3.5-5.1)
[2019-04-27 17:10] VITALS: BP 157/82
--- NOTE | 2019-04-29 18:34 | EKG ---
[place] [address] [facility] [employer] [place] [address] ELECTROCARDIOGRAM REPORT Name: AYLIN MORALES Room #: [facility]#: [id number] ������������������ Admission: 04/27/19 ������������������ Attend Phys: Discharge: 04/27/19 ������������������ Date of : 68 Report #: [id number] ����������������������������������������������������������������� [id number] THIS REPORT FOR: //name// [facility] ED Test Date: 2019-04-27 Test Time: 14:22:36 Pat Name: AYLIN MORALES Department: Room: Gender: F Assurance Services Manager Health Care: [place] : 1970 Requested By: Lakesha Mcdermott Order Number: [id number] MD: Wilbur Simpson Measurements Intervals [place] Rate: 75 P: -17 [place]: 130 QRS: 28 QRSD: 83 T: 67 QT: 423 QTc: 473 Interpretive Statements Sinus rhythm LVH by voltage Compared to ECG 12/20/2018 07:39:14 No significant changes Electronically Signed On 04-29-2019 18:34:35 CDT by Wilbur Simpson [email or web address] ��������������������������������������������� <ELECTRONICALLY SIGNED> ���������������������������������������� By: Wilbur Simpson MD ��������������������������������������������� 04/29/19 1834 1422 1422 Wilbur Simpson MD /DARWIN
== END 2019-04-27 18:36 | disposition home or self-care (01) ==
LOC: ER 14:15
PROVIDERS: Emergency Medicine
DX: R42 Dizziness and giddiness (principal); R06.00 Dyspnea, unspecified; J45.909 Unspecified asthma, uncomplicated; E11.22 Type 2 diabetes mellitus with diabetic chronic kidney disease; N18.9 Chronic kidney disease, unspecified; Z79.4 Long term (current) use of insulin

== ENCOUNTER 2020-03-27 03:44 | Inpatient (IN) | payer OTHER ==
[2020-03-27] VITALS (85 sets, daily range): BP systolic 52–199; BP diastolic 27–147
[~2020-03-27] VITALS: Ht 170.2 cm; Wt 120.1 kg
--- NOTE | ~2020-03-27 | EMS ---
[facility] [address] [place] [address] EMS Patient Care Report Name: AYLIN MORALES Room #: 239-P ADM IN M.R.#: [id number] Admission: 03/27/20 Attend Phys: Shaquille Rousseau MD Discharge: Date of : 68 Report #: [id number] THIS REPORT FOR: //name// Report Transmitted: 03/27/2020 08:39 EMS Care Summary [place], [place]/[facility] Incident [id number] @ 03/27/2020 02:58 Incident Location [id number] [place] [address] Patient AYLIN MORALES Female, 49 Years 1970 Patient Address [address] [place] [id number] Patient History Diabetes,Depression, Patient Allergies No known allergies, Patient Medications Metformin, Abilify, Chief Complaint UNCONCIOUS Disposition Transported No Lights/[place] Dispatch Reason Unconscious/Fainting Transported To [facility] Narrative PT FOUND ON FLOOR OF NH ROOM WITH NURSHING HOME STAFF MONITORING PULSE OX. PT IS UNRESPONSIVE AND COOL TO THE TOUCH. GCS 3, BREATHING ADEQUADETLY WITH SNORING. NURSING STAFF STATE THEY FOUND PT 1 HOUR AGO ON GROUND IN THE SAME [facility] [address] [place] [address] EMS Patient Care Report Name: AYLIN MORALES Room #: 239-P ADM IN [place].#: [id number] Admission: 03/27/20 Attend Phys: Shaquille Rousseau MD Discharge: Date of : 68 Report #: [id number] STATE THAT SHE IS IN NOW. PT'S NORMAL DISPOSITION IS ACTIVE AND MOSTLY INDEPENDENT. PT IS OF A HIGH BMI AND VASCULAR ACCESS IS OF LOW LIKELIHOOD, IO IS CONSIDERED. PT HAS NO HISTORY OF STROKE OR [place]. INITIAL BLOOD PRESSURE IS 200+ OVER PALP ON AUTOMATED CUFF. AT THIS POINT [facility] INITIATES RAPID TRANSPORT. PT IS [place]-MOVED TO [facility] STRETCHER WITHOUT INCIDENT AND WHEELED OUT OF FACILITY TO AMBULANCE. PT IS LOADED WITHOUT INCIDENT. VITALS TAKEN IN AMBUANCE REVEAL MUCH DIFFERENT PRESSURE AND OVERALL STABLE VITALS WELL WITHIN NORMAL RANGES. PT IS HAVING SNORING RESPIRATIONS BUT IS SATTING GENEROUSLY ABOVE 94%. 4 LEAD ECG REVEILS SUSPECTED ST DEPRESSION, BUT DUE TO SNORING RESPIRATONS, PRESENCE OF ARTIFACT, WANDERING BASELINE, GOOD RUNS OF NSR, LACK OF IV ACCESS, AND STABLE VITAL SIGNS ECG RHYTHM IS NOTED. PT OPENS EYES WHEN NAME IS CALLED AND STARES OUT WINDOW OF AMBULANCE, BUT DOES NOT MAKE EYE CONTACT OR FOLLOW COMMANDS OF [facility] 528. THIS IS THE ONLY TIME PT IS OBSERVED OPENING EYES TO VERBAL. PT VITALS, MENTAL STATUS AND AIRWAY ARE MONITORED AND OBSERVED CLOSELY FOR INCIDENTS THROUGH ENTIRETY OF TRANSPORT. PT IS MOVED FROM AMBULANCE AND INTO HOSPITAL WITH NO INCIDENT. PT CARE IS SUCCESSFULLY TRANSFERRED TO [facility] NURSING STAFF. Initial Vitals @03:39P: 61,R: 16,BP: 134/85,Pain: 0/10,GCS: 3,SpO2: 100,Revised Trauma: 8,[place] Suspected: true @03:27P: 61,R: 18,BP: 148/50,Pain: 0/10,GCS: 3,Glucose: 171,SpO2: 100,Revised Trauma: 8,[place] Suspected: false @03:16P: 58,R: 18,BP: 213/0,Pain: 0/10,GCS: 6,Glucose: 150,CO: 0,SpO2: 100,Revised Trauma: 10, Assessments @03:11MENTAL:Unresponsive,SKIN:Cold,Pale,Diaphoresis,HEENT:Neck/Airway: No Abnormalities,LUNG SOUNDS:General: No Abnormalities,Left Upper: No Abnormalities,Right Upper: No Abnormalities,Left Lower: No Abnormalities,Right Lower: No Abnormalities,ABDOMEN:General: No Abnormalities,Left Upper: No Abnormalities,Right Upper: No Abnormalities,Left Lower: No Abnormalities,Right Lower: No Abnormalities,PELVIS//GI:No Abnormalities,EXTREMITIES:Capillary Refill: Right Upper: < 2 Sec,Left Arm: No Abnormalities,Right Arm: No Abnormalities,Left Leg: No Abnormalities,Right Leg: No Abnormalities,PULSE:Radial: 1+ Thready,NEURO: Impression Syncope / Fainting Procedures @03:33Saline Lock 0cc (24 ga) Site: Antecubital-LeftResponse: UnchangedFailed@03:27StretcherResponse: Unchanged@03:293-Lead ECGResponse: UnchangedSucceeded@03:12ALS AssessmentResponse: UnchangedSucceeded@PTAOxygen FlowRate: 4 Device: Nasal Cannula (NC) Response: ImprovedSucceeded@03:27Oxygen [address] [address] EMS Patient Care Report Name: AYLIN MORALES Room #: 239-P [facility] IN [facility]#: [id number] Admission: 03/27/20 Attend Phys: Shaquille R. Hura, MD Discharge: Date of : 68 Report #: [id number] FlowRate: 4 Device: Nasal Cannula (NC) Response: UnchangedSucceeded Timeline ADDING MACHINE SERVICER,Oxygen FlowRate: 4 Device: Nasal Cannula (NC) Response: ImprovedSucceeded, 02:56,Call Received 02:56,Dispatch Notified 02:58,Dispatched 02:59,En Route 03:08,On Scene 03:11,At Patient 03:12,ALS Assessment,Response: UnchangedSucceeded, 03:16,BP: 213/0 M,PULSE: 58,RR: 18 R,SPO2: 100 Ox,ETCO2: ,B,PAIN: 0,GCS: 6, 03:27,Stretcher,Response: Unchanged 03:27,Oxygen FlowRate: 4 Device: Nasal Cannula (NC) Response: UnchangedSucceeded, 03:27,BP: 148/50 M,PULSE: 61,RR: 18 R,SPO2: 100 Ox,ETCO2: ,B,PAIN: 0,GCS: 3, 03:29,3-Lead ECG,Response: UnchangedSucceeded, 03:33,Saline Lock 0cc 24 ga Site: Antecubital-Left,Response: UnchangedFailed, 03:35,Depart Scene 03:39,BP: 134/85 M,PULSE: 61,RR: 16 R,SPO2: 100 Ox,ETCO2: ,BG: ,PAIN: 0,GCS: 3, 03:40,At Destination 04:18,Call Closed Disclaimer v1.1 Copyright 2020 [employer] This EMS Care Summary contains data elements from the applicable legal record (which may be displayed differently). It is designed to provide pertinent information for the following purposes: continuity of care, clinical quality, and state data reporting. The complete legal record is available to ED staff and administrators of the receiving hospital in [employer]'s Patient Tracker. All data is provided "as is."
--- NOTE | ~2020-03-27 | EMS ---
[place] [address] EMS Patient Care Report Name: AYLIN MORALES Room #: REG [facility].Antonia#: [id number] Admission: 03/27/20 Attend Phys: Discharge: Date of : 68 Report #: [id number] THIS REPORT FOR: //name// Report Transmitted: 03/27/2020 04:06 EMS Care Summary [place], [place]/[facility] Incident [id number] @ 03/27/2020 02:58 Incident Location [id number] [place] [address] Patient AYLIN MORALES Female, 49 Years 1970 Patient Address [address] [place] [address] Patient History Diabetes,Depression, Patient Allergies No known allergies, Patient Medications Metformin, Abilify, Chief Complaint UNCONCIOUS Disposition Transported No Lights/[place] Dispatch Reason Unconscious/Fainting Transported To [facility] Narrative PT FOUND ON FLOOR OF NH ROOM WITH NURSHING HOME STAFF MONITORING PULSE OX. PT IS UNRESPONSIVE AND COOL TO THE TOUCH. GCS 3, BREATHING ADEQUADETLY WITH SNORING. NURSING STAFF STATE THEY FOUND PT 1 HOUR AGO ON GROUND IN THE SAME [address] [address] EMS Patient Care Report Name: AYLIN MORALES Room #: REG LAURA [place].#: [id number] Admission: 03/27/20 Attend Phys: Discharge: Date of : 68 Report #: [id number] STATE THAT SHE IS IN NOW. PT'S NORMAL DISPOSITION IS ACTIVE AND MOSTLY INDEPENDENT. PT IS OF A HIGH BMI AND VASCULAR ACCESS IS OF LOW LIKELIHOOD, IO IS CONSIDERED. PT HAS NO HISTORY OF STROKE OR [place]. INITIAL BLOOD PRESSURE IS 200+ OVER PALP ON AUTOMATED CUFF. AT THIS POINT [employer] [facility] INITIATES RAPID TRANSPORT. PT IS [facility]-MOVED TO [facility] WITHOUT INCIDENT AND WHEELED OUT OF FACILITY TO AMBULANCE. PT IS LOADED WITHOUT INCIDENT. VITALS TAKEN IN AMBUANCE REVEAL MUCH DIFFERENT PRESSURE AND OVERALL STABLE VITALS WELL WITHIN NORMAL RANGES. PT IS HAVING SNORING RESPIRATIONS BUT IS SATTING GENEROUSLY ABOVE 94%. 4 LEAD ECG REVEILS SUSPECTED ST DEPRESSION, BUT DUE TO SNORING RESPIRATONS, PRESENCE OF ARTIFACT, WANDERING BASELINE, GOOD RUNS OF NSR, LACK OF IV ACCESS, AND STABLE VITAL SIGNS ECG RHYTHM IS NOTED. PT OPENS EYES WHEN NAME IS CALLED AND STARES OUT WINDOW OF AMBULANCE, BUT DOES NOT MAKE EYE CONTACT OR FOLLOW COMMANDS OF MEDIC 528. THIS IS THE ONLY TIME PT IS OBSERVED OPENING EYES TO VERBAL. PT VITALS, MENTAL STATUS AND AIRWAY ARE MONITORED AND OBSERVED CLOSELY FOR INCIDENTS THROUGH ENTIRETY OF TRANSPORT. PT IS MOVED FROM AMBULANCE AND INTO HOSPITAL WITH NO INCIDENT. PT CARE IS SUCCESSFULLY TRANSFERRED TO [facility] NURSING STAFF. Initial Vitals @03:39P: 61,R: 16,BP: 134/85,Pain: 0/10,GCS: 3,SpO2: 100,Revised Trauma: 8,[place] Suspected: true @03:27P: 61,R: 18,BP: 148/50,Pain: 0/10,GCS: 3,Glucose: 171,SpO2: 100,Revised Trauma: 8,[place] Suspected: false @03:16P: 58,R: 18,BP: 213/0,Pain: 0/10,GCS: 6,Glucose: 150,CO: 0,SpO2: 100,Revised Trauma: 10, Assessments @03:11MENTAL:Unresponsive,SKIN:Cold,Pale,Diaphoresis,HEENT:Neck/Airway: No Abnormalities,LUNG SOUNDS:General: No Abnormalities,Left Upper: No Abnormalities,Right Upper: No Abnormalities,Left Lower: No Abnormalities,Right Lower: No Abnormalities,ABDOMEN:General: No Abnormalities,Left Upper: No Abnormalities,Right Upper: No Abnormalities,Left Lower: No Abnormalities,Right Lower: No Abnormalities,PELVIS//GI:No Abnormalities,EXTREMITIES:Capillary Refill: Right Upper: < 2 Sec,Left Arm: No Abnormalities,Right Arm: No Abnormalities,Left Leg: No Abnormalities,Right Leg: No Abnormalities,PULSE:Radial: 1+ Thready,NEURO: Impression Syncope / Fainting Procedures @03:33Saline Lock 0cc (24 ga) Site: Antecubital-LeftResponse: UnchangedFailed@03:27StretcherResponse: Unchanged@03:293-Lead ECGResponse: UnchangedSucceeded@03:12ALS AssessmentResponse: UnchangedSucceeded@PTAOxygen FlowRate: 4 Device: Nasal Cannula (NC) Response: ImprovedSucceeded@03:27Oxygen [address] [address] EMS Patient Care Report Name: AYLIN MORALES Room #: REG LAURA [place]#: [id number] Admission: 03/27/20 Attend Phys: Discharge: Date of : 68 Report #: [id number] FlowRate: 4 Device: Nasal Cannula (NC) Response: UnchangedSucceeded 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,Oxygen FlowRate: 4 Device: Nasal Cannula (NC) Response: ImprovedSucceeded, 02:56,Call Received 02:56,Dispatch Notified 02:58,Dispatched 02:59,En Route 03:08,On Scene 03:11,At Patient 03:12,ALS Assessment,Response: UnchangedSucceeded, 03:16,BP: 213/0 M,PULSE: 58,RR: 18 R,SPO2: 100 Ox,ETCO2: ,B,PAIN: 0,GCS: 6, 03:27,Stretcher,Response: Unchanged 03:27,Oxygen FlowRate: 4 Device: Nasal Cannula (NC) Response: UnchangedSucceeded, 03:27,BP: 148/50 M,PULSE: 61,RR: 18 R,SPO2: 100 Ox,ETCO2: ,B,PAIN: 0,GCS: 3, 03:29,3-Lead ECG,Response: UnchangedSucceeded, 03:33,Saline Lock 0cc 24 ga Site: Antecubital-Left,Response: UnchangedFailed, 03:35,Depart Scene 03:39,BP: 134/85 M,PULSE: 61,RR: 16 R,SPO2: 100 Ox,ETCO2: ,BG: ,PAIN: 0,GCS: 3, 03:40,At Destination 04:18,Call Closed Disclaimer v1.1 Copyright 2020 [employer] This EMS Care Summary contains data elements from the applicable legal record (which may be displayed differently). It is designed to provide pertinent information for the following purposes: continuity of care, clinical quality, and state data reporting. The complete legal record is available to ED staff and administrators of the receiving hospital in [employer] Patient Tracker. All data is provided "as is."
[~2020-03-27 03:44] MED LIST changes: +SERTRALINE HCL50 MG PO; -ZOLOFT50 MG PO
[2020-03-27 04:20] LABS: HCO3 22.4 mmol/L (22.0-26.0); PCO2 46.2 mmHg (35.0-45.0); PO2 302.9 mmHg (80.0-100.0); sO2 99.6 % (92.0-98.0)
[2020-03-27 04:21] LABS: pH 7.304 (7.360-7.450)
[2020-03-27] MEDS ORDERED: [UNRECOGNIZED DRUG - OTHER] PO (04:36)
[2020-03-27] MEDS ORDERED: OMEPRAZOLE 20 M20 M1 PO (04:42)
[2020-03-27 04:47] LABS: BASOPHILS 0.6 % (0.0-2.0); EOSINOPHILS 0.9 % (0.0-3.0); HEMATOCRIT 34.6 % (37.0-47.0); HEMOGLOBIN 11.1 gm/dL (12.0-15.0); LYMPHOCYTES 7.9 % (24.0-44.0); MCH 32.5 pg (26.0-34.0); MCV 101.3 fL (80.0-100.0); MONOCYTES 7.5 % (1.0-8.0); PLATELET COUNT 332 thou/uL (150-400); POLYS 83.1 % (36.0-66.0); RBC 3.42 mil/uL (4.20-5.00); RDW 14.5 % (10.5-14.5); WBC 10.8 thou/uL (4.0-11.0)
[2020-03-27] MEDS ORDERED: SENSIPAR 30 MG30 M1 PO (04:47)
[2020-03-27] MEDS ORDERED: FERRIC CITRATE210 MG PO (04:55)
[2020-03-27] MEDS ORDERED: MECLIZINE HCL25 M1 PO (04:56)
[2020-03-27 05:02] LABS: APTT 30.1 Seconds (24.5-32.8)
[2020-03-27] MEDS ORDERED: PROTONIX40 M1 PO (05:02)
[2020-03-27] MEDS ORDERED: SENNA S TABLET1 EACH PO (05:04)
[2020-03-27] MEDS ORDERED: TOPROL XL100 MG PO (05:06)
[2020-03-27 05:18] LABS: ANION GAP 12 mmol/L (7-16); BUN 20 mg/dL (7-18); CALCIUM 9.5 mg/dL (8.5-10.1); CHLORIDE 97 mmol/L (98-107); CO2 24 mmol/L (21-32); CREATININE 6.1 mg/dL (0.6-1.0); GLUCOSE 170 mg/dL (74-106); POTASSIUM 4.4 mmol/L (3.5-5.1); SODIUM 133 mmol/L (136-145)
[2020-03-27 05:22] LABS: ALBUMIN 3.5 g/dL (3.4-5.0); MAGNESIUM 2.3 mg/dL (1.8-2.4); SGOT 19 U/L (15-37); SGPT 10 U/L (30-65); TOTAL BILIRUBIN 0.2 mg/dL (0.2-1.0); TOTAL PROTEIN 6.9 g/dL (6.4-8.2); TROPONIN-I <0.06 ng/mL (<0.06)
[2020-03-27 05:25] LABS: URINE CLARITY SL HAZY; URINE COLOR YELLOW
[2020-03-27 05:26] LABS: URINE BILIRUBIN NEGATIVE (Negative); URINE BLOOD 2+ (Negative); URINE GLUCOSE-RANDOM* 1+ (Negative); URINE KETONES TRACE (Negative); URINE LEUKOCYTES-REFLEX 1+ (Negative); URINE NITRITE-REFLEX NEGATIVE (Negative); URINE PROTEIN (DIPSTICK) 3+ (Negative); URINE UROBILINOGEN 0.2 E.U./dl (0.2-1.0)
[2020-03-27 05:32] LABS: AMP/METHAMP Negative (Negative); BARBITURATES Negative (Negative); BENZODIAZEPINES Negative (Negative); COCAINE Negative (Negative); METHADONE Negative (Negative); OPIATES Negative (Negative); PCP Negative (Negative)
[2020-03-27 05:53] LABS: HYALINE CASTS 4-10 Moderate /LPF (None Seen); MUCUS 4-6 Moderate strn/LPF (None Seen); SQUAMOUS 4-10 Moderate /LPF (0-3); URINE WBC-REFLEX 6-15 Few /HPF (0-5); WBC CLUMPS Moderate (None Seen)
[2020-03-27 05:54] LABS: CRYSTALS None Seen /LPF (None Seen)
--- NOTE | 2020-03-27 06:41 | NUR ---
PATIENT ADMITTED FROM ED DEPARTMENT AT 0635, PLACED ON MONITOR. PATIENT CAME UP ON BIPAP SETTINGS (R 12, 30%), O2 SAT 100%. WILL CONTINUE TO MONITOR.
--- NOTE | 2020-03-27 06:43 | NUR ---
SPOKE WITH DR. NESS ABOUT CONSULT, DR. NESS WOULD LIKE TO BE PAGED AN NOTIFIED PATIENT'S DIALYSIS DAYS. PATIENT GETS DIALYSIS MWF. BELONGINGS NOTED A PAIR OF PANTS AND ABBOTT.
[2020-03-27 09:41] LABS: HCO3 23.1 mmol/L (22.0-26.0); PCO2 45.7 mmHg (35.0-45.0); PO2 142.7 mmHg (80.0-100.0); sO2 98.6 % (92.0-98.0)
[2020-03-27 09:42] LABS: pH 7.322 (7.360-7.450)
--- NOTE | 2020-03-27 12:34 | NUR ---
CONSULTED TO PLACE A CENTRAL LINE FOR A PATIENT IN ICU. ORDER AND CONSENT NOTED. A RIGHT JUGULAR VEIN WAS WIDLEY PATENT. A #6F TRIPLE LUMEN CENTRAL LINE WAS PLACED PER HOSPITAL POLICY AFTER A BEDSIDE TIMEOUT WAS COMPLETED. LINE WAS 25CM AND ADVANCED TO 8CM EXTERNAL. A STAT CHEST XRAY VERIFIED LINE IN GOOD POSITION. LINE RELEASED FOR USE
--- NOTE | 2020-03-27 13:27 | NUR ---
R proximal tib IO removed at 1215 today with use of 3cc 1% lido for local analgesic effect prior to removal. Yellow [45mm] IO removed without complication, pressure dressing left in place for ~60mins. Site checked at this time, no bleeding noted. 1.5cm linear ecchymosis noted on posterior aspect of IO hub site without swelling or induration. RN notified and updated, no further action or site treatment recommended besides routine care at this time.
--- NOTE | 2020-03-27 16:40 | EKG ---
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: MFISHER8 : 1970 Requested By: Ben Salcido Order Number: [id number] MD: Roderick Montalvo Measurements Intervals [place] Rate: 57 P: -6 [place]: 160 QRS: 34 QRSD: 96 T: 56 QT: 516 QTc: 503 Interpretive Statements Sinus rhythm Prolonged QT interval Compared to ECG 04/27/2019 14:22:36 Prolonged QT interval now present Electronically Signed On 03-27-2020 16:39:17 CDT by Roderick Montalvo [email or web address] <ELECTRONICALLY SIGNED> By: Roderick Montalvo MD, [facility] 03/27/20 1639 0355 0355 Roderick Montalvo MD, [facility] /EPI
--- NOTE | 2020-03-27 17:48 | NUR ---
ASSUMED CARE @ 0700 03/27/20, PT ASSESSMENTS AND VSS COMPLETE PER ICU PROTOCOL. PT ENCOUNTERED ON BIPAP @40%, SATS IN 95-100, RR 15-20, FOLLOW UP ABGS ACQUIRED, DR MEJIA MADE AWARE. CONSULTS CALLED TO ALL PROVIDERS. 4898 SHIMON KELLER CARE OVERHAULER HELPER CALLED, UPDATE GIVEN. 1411 DR MEJIA CALLED TO INFORM THAT PT HR IS THE LOW 50'S AND PRECEDEX MAY DROP HR, RN TOLD TO STILL TURN PRECEDEX ON AND MONITOR. 1654 BP 80'S/50'S, 500 ML BOLUS ORDERED PER ROBERTO. HD DONE TODAY 4L PULLED OFF.
--- NOTE | 2020-03-27 18:08 | NUR ---
Case opened to follow for dc planning. Pt is currently in the ICU. She is a half-way care resident at [facility] x 4 years. She was dialyzed today and is normally on hemo dialysis at the alf [facility]. Her covid test is pending there cm visit deferred until the pt is out of iso. Pt's son Barbie and her Jonn Olivas are her emergency contacts. Message left for the alf socialworker to see if she has an AD/DPOA on file there and to confirm they are holding her bed. DC corporate meeting planner to fax updates to the facility. DC timeframe is uncertain pending her progress.
[2020-03-27 18:55] LABS: TSH 2.713 uIU/mL (0.358-3.740)
[2020-03-28] VITALS (44 sets, daily range): BP systolic 72–163; BP diastolic 17–105
[2020-03-28 01:06] LABS: HEP B SURFACE Ab(ANTI-HBS Reactive (()); HEPATITIS B SURFACE AG Negative (Negative)
--- NOTE | 2020-03-28 04:24 | NUR ---
Pt is minimally responsive, except to cares, ie, repositioning etc, then she moans loudly, she is not following any commands and is on a very low dose of precedex for profound restlessness. When the pt is sleeping, her heart rate drops into the mid/upper 40's, no ectopy noted and her BP has been 120's to 130's over 30's with MAP> 60 mmHg. She has weak pulses, generalized edema and warm, dry skin. Lungs are diminished throughout, sats are 95% and above on 30% FiO2. ABD is soft, hypoactive bowel sounds, no flatus, no BM since before admit. Pt is anuric, had dialysis 03/27, her DANIEL AV fistula was oozing, so gauze was used to reinforce the dressing. The bed is in the low/locked position, the siderails are up x 4 and the patient is slowly progressing to POC goals. Will continue to monitor.
[2020-03-28 05:22] LABS: ALBUMIN 3.6 g/dL (3.4-5.0); CALCIUM 8.8 mg/dL (8.5-10.1); CREATININE 5.5 mg/dL (0.6-1.0); MAGNESIUM 2.1 mg/dL (1.8-2.4); PHOSPHORUS 5.5 mg/dL (2.5-4.9); POTASSIUM 4.3 mmol/L (3.5-5.1)
[2020-03-28 05:26] LABS: HCO3 21.6 mmol/L (22.0-26.0); PCO2 46.3 mmHg (35.0-45.0); sO2 98.2 % (92.0-98.0)
[2020-03-28 05:30] LABS: pH 7.287 (7.360-7.450)
[2020-03-28 05:54] LABS: ABSOLUTE NEUTROPHILS 16.1 thou/uL (1.4-8.2); BASOPHILS 0.1 % (0.0-2.0); HEMATOCRIT 37.1 % (37.0-47.0); HEMOGLOBIN 11.8 gm/dL (12.0-15.0); LYMPHOCYTES 3.8 % (24.0-44.0); MCH 31.9 pg (26.0-34.0); MCHC 31.8 g/dL (28.0-37.0); MCV 100.4 fL (80.0-100.0); MONOCYTES 1.6 % (1.0-8.0); PLATELET COUNT 323 thou/uL (150-400); POLYS 94.5 % (36.0-66.0); RDW 14.2 % (10.5-14.5)
--- NOTE | 2020-03-28 10:17 | NUR ---
TOOK OVER PT CARE AT 0700. HR IN THE LOW MID TO HIGH 40s; PATIENT BECAME INCREASINGLY RESTLESS AFTER 0800 - KICKING AND THROWING FEET OFF THE BEDRAILS, GROANING BUT NOT ABLE TO VERBALIZE CONCERNS; READJUSTED PATIENT IN THE BED, INCREASED RATE ON PRECEDEX GTT. PT'S DEVYNECE LYLE CALLED FOR AN UPDATE, REPORTED THAT SHE LAST SPOKE TO PT ON 03/25/20 AND PATIENT WAS MENTATING APPROPRIATELY. CALLED [facility] FOR ADDL' INFO ON PATIENT - PER THEIR ADMIN, "PT HAS BEEN FREQUENTLY REFUSING DIALYSIS TREATMENTS; SHE HAS MOMENTS OF INCLINE AND DECLINE ESPECIALLY AFTER MULTIPLE MISSED DIALYSIS SESSIONS. OVER THE LAST 3 MONTHS PATIENT HAS HAD 3 SIMILAR HOSPITAL ADMISSION." AT 0945, DR MEJIA ROUNDED ON PT; WILL PLAN TO KEEP PATIENT ON BiPAP, MINIMIZE SEDATION AND CONTINUE TO MONITOR PT FOR IMPROVED MENTATION.
--- NOTE | 2020-03-28 15:08 | NUR ---
PT IS FROM [facility] FAXED CLINICAL UPDATE TO FACILITY SPOKE WITH JAVED IN ADM SHE RECEIVED UPDATE. DP TO FOLLOW.
--- NOTE | 2020-03-28 15:17 | HC ---
[facility] [place] [address] CONSULTATION Name: AYLIN MORALES Room #: 239-P ADM IN M.R.#: [id number] Admission: 03/27/20 Attend Phys: Shaquille Rousseau MD Discharge: Date of : 68 Report #: [id number] THIS REPORT FOR: cc: Franki Bhakta MD,Franki Alvares,Pablito Miranda MD ~ CC: Shaquille Bhakta REASON FOR CONSULTATION: End-stage renal disease. REASON FOR PRESENTATION: Altered mental status. HISTORY OF PRESENT ILLNESS: This is obtained from the medical chart. The patient is not able to provide me with any details. She was sent from the [facility] because of altered mental status. She is a dialysis patient who has been on dialysis every Tuesday, Tuesday and Tuesday. She is oxygen dependent. She apparently was at [facility] for unclear reasons to me, ever since she had been in a COVID-19 isolation unit in [place]. Nursing staff reported that the patient had been unresponsive and was sent to the hospital for further evaluation. O2 sat was 92 on presentation to the Emergency Room. She had extensive bilateral pulmonary infiltrate on her chest x-ray. She was ruled out for COVID-19 and I was asked to assist with the management of her end-stage renal disease and dialysis related issues. I have evaluated her previously a year ago and to me this seems to be a recurrent issue. PAST MEDICAL HISTORY: 1. End-stage renal disease, maintained on hemodialysis every Tuesday, Tuesday and Tuesday. 2. History of deep venous thrombosis and pulmonary embolism. 3. Left-sided AV dialysis access. 4. Diabetes mellitus. 5. Hypertension. REVIEW OF SYSTEMS: Unobtainable given the patient's current mental status. SOCIAL HISTORY: She comes from [place]. No reported drug or alcohol abuse. ALLERGIES: None is listed. FAMILY HISTORY: Unobtainable given the patient's current mental status. MEDICATIONS: From the nursing facility includes the followin. Atorvastatin. 2. Metoprolol. 3. Amlodipine. 4. Sevelamer. [facility] [address] [place] [address] CONSULTATION Name: AYLIN MORALES Room #: 239-P [facility] IN [facility]#: [id number] Admission: 03/27/20 Attend Phys: Shaquille Rousseau MD Discharge: Date of : 68 Report #: [id number] 5. Omeprazole. 6. Cinacalcet. 7. Insulin. 8. Lillian-Edwin. PHYSICAL EXAMINATION: GENERAL: She is sleepy with a CPAP of 5. VITAL SIGNS: Temperature 36.6, blood pressure 116/36. HEAD AND NECK: No jugular venous distention. CHEST: Decreased air entry bilaterally. CARDIOVASCULAR: No rub detected. ABDOMEN: Soft. EXTREMITIES: Lower extremities, no edema. Upper extremities, left AV fistula. LABORATORY DATA: White blood cell count 17,000, hemoglobin 11.8. Sodium 131, BUN is 21, creatinine is 5.5. Phosphorus is 5.5. Chest x-ray much better from this morning when compared to the previous images. ASSESSMENT AND IMPRESSION: 1. End-stage renal disease. 2. Pulmonary edema. 3. Ruled out for COVID-19 infection. PLAN: 1. She received emergent dialysis yesterday. We will dialyze again today with aggressive ultrafiltration. 2. Primary team is addressing other comorbid conditions, antibiotic. 3. Pulmonary is addressing her ongoing lung issues. <ELECTRONICALLY SIGNED> By: Pablito Alvares MD 03/28/20 [id number] Pablito Alvares MD /nt
[2020-03-29] VITALS (21 sets, daily range): BP systolic 94–175; BP diastolic 20–85
--- NOTE | 2020-03-29 07:35 | NUR ---
PT FOLLOWING COMMANDS. PT SCREAMING AND BANGING ON THE SIDE RAILS WHEN PRECEDEX TITRATED DOWN. PT BRADYCARDIC. PT ON BIPAP. CONTINUE TO MONITOR. CHART CHECK. REPORT GIVEN TO BAKARI ROSA.
--- NOTE | 2020-03-29 10:11 | NUR ---
TOOK OVER PATIENT CARE AT 0700. PATIENT ON BiPAP AT 30%; 14/6; AND PRECEDEX AT 0.8MCG/KG/HR; AND FOLLOWING SIMPLE COMMANDS. AT 0900, OFF BiPAP AND AND ON 10L HFL N/C, PRECEDEX OFF, 02 SAT 100%; WILL CONTINUE TO MONITOR AND TITRATE 02 PATIENT TOLERATES. NEPHROLOGY ROUNDED, NO PLAN FOR HD TODAY.
--- NOTE | 2020-03-29 19:06 | NUR ---
PT CARE ASSUMED AT 1830. TRANSFER FROM ICU. PT RECEIVES DIALYSIS MWF; NON-COMPLIANT AT FACILITY; 4 L TAKEN TUESDAY, 3 L TUESDAY. A X 2. FREQUENTLY REQUESTS SNACKS. O X 2-3. ANURIC. LAST BM UNKNOWN.
[2020-03-30 03:00] VITALS: BP 79/43
--- NOTE | 2020-03-30 03:51 | NUR ---
ASSUMED CARE OF PATIENT AT 1900. PATIENT ASKED FOR SNACKS MULTIPLE TIMES DURING THE SHIFT. EXPLAINED TO PATIENT ABOUT HER DIET AND LIMITING SNACKS. WHEN PATIENT WOULD NOT GET A SNACK SHE WOULD YELL INCESSANTLY THAT SHE WANTED A SNACK AND WANTED TO EAT. THROUGHOUT THE NOC PATIENT WOULD YELL OUT AFTER HER CALL LIGHT HAD BEEN ANSWERED. PATIENT ALSO YELLED OUT THAT SHE WANTED TO GO HOME REPEATEDLY.A MULTITUDE OF INTERVENTIONS WAS ATTEMPTED--TYLENOL, LORAZEPAM, WARM BLANKETS, ETC--BUT NOTHING WAS EFFECTIVE. PATIENT DID WEAR BIPAP DURING NOC BUT WOULD TAKE IT OFF AND THEN YELL FOR STAFF TO COME PUT IT BACK ON HER.
[2020-03-30 05:09] LABS: BE(vivo) -7.1 mmol/L (-2 to +3); PCO2 35.1 mmHg (35.0-45.0); PO2 61.5 mmHg (80.0-100.0); sO2 90.2 % (92.0-98.0)
[2020-03-30 05:10] LABS: pH 7.329 (7.360-7.450)
[2020-03-30 05:15] LABS: ALBUMIN 3.7 g/dL (3.4-5.0); CALCIUM 9.4 mg/dL (8.5-10.1); PHOSPHORUS 5.2 mg/dL (2.5-4.9)
[2020-03-30 05:18] LABS: CREATININE 7.5 mg/dL (0.6-1.0)
[2020-03-30 05:39] LABS: HEMATOCRIT 34.9 % (37.0-47.0); HEMOGLOBIN 11.5 gm/dL (12.0-15.0); MCH 32.8 pg (26.0-34.0); MCHC 33.1 g/dL (28.0-37.0); RBC 3.52 mil/uL (4.20-5.00); RDW 14.8 % (10.5-14.5); WBC 17.2 thou/uL (4.0-11.0)
[2020-03-30 07:42] VITALS: BP 124/68
[2020-03-30 12:10] VITALS: BP 139/44
[2020-03-30 16:31] VITALS: BP 116/42
--- NOTE | 2020-03-30 17:04 | NUR ---
ASSUMED CARE OF PATIENT AT 0700. ASSESSMENTS COMPLETED. PATIENT A&O X 4 AND VERY IMPATIENT. PATIENT HAD BIPAP ON INTERMITTENTLY THROUGHOUT DAY PER HER REQUEST AND REMAINED 100% O2 SAT ON ROOM AIR WHILE AT REST. PATIENT DE SAT TO 70'S WITH ANY ACTIVITY AND RECOVERED WELL AT REST. C/O ERASMO SHOULDER PAIN, GIVEN TYLENOL AND DICLOFENAC GEL. PATIENT NOTES PARTIAL IMPROVEMENT. LUNCH BLOOD SUGAR OF 467 WITH SUPPLEMENTAL INSULIN GIVEN IN ADDITION TO SLIDING SCALE PER DR. DANTE REY. PATIENT TO CONTINUE WITH POC.
[2020-03-30 20:33] VITALS: BP 153/59
[2020-03-31 03:12] VITALS: BP 153/65
--- NOTE | 2020-03-31 04:28 | NUR ---
SLEPT PART OF SHIFT. CALLS OUT FREQUENTLY FOR SAME THING. NEEDS FREQUENT REASSURANCE AND REMINDING OF PREVIOUS CONVERSATION. PATIENT MOVES AROUND IN BED AND TURNS SELF BUT CALLS OUT TO HAVE HEAD RAISED AND LOWERED. TOLERATING NECTAR THICK LIQUIDS WITHOUT PROBLEMS OR COUGHING. WORKING ON GOALS AND PLAN OF CARE FOR NOC. ON BIPAP MOST OF SHIFT AND TOLERATES WELL. PROGRESSING SLOWLY TOWARDS DISCHARGE GOALS. CONTINUE TO ASSES CLOSELY.
[2020-03-31 07:00] VITALS: BP 254/92
[2020-03-31 07:45] VITALS: BP 145/61
--- NOTE | 2020-03-31 10:09 | NUR ---
ASSUMED CARE AT SHIFT CHANGE, ALERT AND ORIENTED X3, CONFUSED AT TIMES AND FORGETFUL. ASKING TO EAT AND DRINK. DAILYSIS NURSE AT BEDSIDE AND PATIENT IS NOT FOLLOWING HER COMMANDS TO KEEP ARM ST, SPOKE WITH PATIENT AND EXPLAINED TO HER THE IMPORTANCE OF KEEPIN ARM DT. PATIENT'S HR IS HIGH 120-150/MIN DR STANTON AT BEDSIDE AND NOTIFIED, NEW ORDERS RECIEVED AND CONSULT CALLED IN. AND WILL CONTINUE WITH POC
[2020-03-31 11:15] VITALS: BP 86/54
--- NOTE | 2020-03-31 15:54 | NUR ---
FAXED CLINICAL UPDATE TO [facility] RECEIVED CONFIRMATION AND LEFT MSG WITH JAVED IN ADM. DP TO FOLLOW.
[2020-03-31 16:00] VITALS: BP 126/51
[2020-03-31 20:37] VITALS: BP 149/48
[2020-04-01 00:34] VITALS: BP 130/49
--- NOTE | 2020-04-01 03:29 | NUR ---
A/O X 3.PAIN FAIRLY CONTROLLED.REPOSITIONED Q2 HOURS AND NEEDED.ON CARDIZEM GTT TITRATED.USES CPAP/BIPAP AT NIGHT.MONITOR SHOWS SR.POC CONTINUED.
[2020-04-01 07:28] VITALS: BP 114/49
--- NOTE | 2020-04-01 08:01 | EKG ---
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: Cb COLBY : 1970 Requested By: Lesly Castillo Order Number: [id number] MD: Roderick Montalvo Measurements Intervals [place] Rate: 137 P: VA: QRS: 34 QRSD: 85 T: 211 QT: 272 QTc: 411 Interpretive Statements Atrial fibrillation Diffuse ST and T wave abnormality Compared to ECG 03/27/2020 03:55:12 Atrial fibrillation has replaced sinus rhythm Electronically Signed On 04-01-2020 8:01:29 CDT by Roderick Montalvo [email or web address] <ELECTRONICALLY SIGNED> By: Roderick Montalvo MD, [facility] 04/01/20 0801 1151 1151 Roderick Montalvo MD, [facility] /EPI
--- NOTE | 2020-04-01 10:44 | 2DMMODE ---
[facility] [place] [address] 2 D/M-MODE ECHOCARDIOGRAM Name: AYLIN MORALES Room #: 202-P ADM IN .R.#: [id number] Admission: 03/27/20 Attend Phys: Shaquille Rousseau MD Discharge: Date of : 68 Report #: [id number] THIS REPORT FOR: cc: Franki Bhakta MD, Srinath MD Park, Jin S. MD ~ APPROVED REPORT Study performed: 04/01/2020 09:53:55 EXAM: Comprehensive 2D, Doppler, and color-flow Echocardiogram Patient Location: Bedside Status: routine BSA: 2.14 HR: 120 bpm BP: 114/49 mmHg Rhythm: Atrial Fibrillation Other Information Study Quality: Technically Limited/morbid obesity/patient sitting straight up in bed. Indications Afib with RVR. Hx: COPD, DM, ESRD, HTN. 2D Dimensions IVSd: 12.21 (7-11mm) LVOT Diam: 18.88 (18-24mm) LVDd: 45.86 mm PWd: 12.14 (7-11mm) LVDs: 25.90 (25-40mm) Aortic Root: 27.00 mm Volumes Left Atrial Volume (Systole) Single Plane 4CH: 41.07 mL Single Plane 2CH: 54.50 mL LA ESV Index: 25.00 mL/m2 Aortic Valve AoV Peak Sg.: 1.65 m/s AO Peak Gr.: 10.95 mmHg LVOT Max P.89 mmHg LVOT Max V: 0.99 m/s WESLEY Vmax: 1.67 cm2 [facility] [address] [place] [address] 2 D/M-MODE ECHOCARDIOGRAM Name: AYLIN MORALES Room #: 202-P [facility] IN [facility]#: [id number] Admission: 03/27/20 Attend Phys: Shaquille Rousseau MD Discharge: Date of : 68 Report #: [id number] Mitral Valve MV Decel. Time: 216.09 ms MV E Max Sg.: 0.88 m/s Pulmonary Valve PV Peak Sg.: 1.28 m/s PV Peak Gr.: 6.51 mmHg Tricuspid Valve TR Peak Sg.: 2.37 m/s RAP Estimate: 5.00 mmHg TR Peak Gr.: 22.49 mmHg PA Pressure: 27.00 mmHg Left Ventricle The left ventricle is normal size. There is normal LV segmental wall motion. Mild concentric left ventricular hypertrophy. Left ventricular systolic function is normal. LVEF is 60-65%. This study is not technically sufficient to allow evaluation of the LV diastolic function due to atrial fibrillation. Right Ventricle Right ventricle is not well visualized. Atria The left atrium size is normal. The right atrium size is normal. Aortic Valve The aortic valve is not well visualized. No aortic regurgitation is present. There is no aortic valvular stenosis. Mitral Valve The mitral valve is normal in structure. There is no mitral valve regurgitation noted. No evidence of mitral valve stenosis. Tricuspid Valve Tricuspid valve is not well visualized. Trace tricuspid regurgitation. Estimated PAP is 25-30mmHg. Pulmonic Valve Pulmonic valve is not well visualized. Trace pulmonic regurgitation. Great Vessels The aortic root is normal in size. IVC is normal in size and collapses >50% with inspiration. [facility] [address] [place] [address] 2 D/M-MODE ECHOCARDIOGRAM Name: AYLIN MORALES Room #: 202-P ADM IN M.R.#: [id number] Admission: 03/27/20 Attend Phys: Shaquille Rousseau MD Discharge: Date of : 68 Report #: [id number] Pericardium There is no pericardial effusion. <Conclusion> The left ventricle is normal size. Mild concentric left ventricular hypertrophy. Left ventricular systolic function is normal. Right ventricle is not well visualized. The left atrium size is normal. There is no aortic valvular stenosis. There is no mitral valve regurgitation noted. Trace tricuspid regurgitation. Estimated PAP is 25-30mmHg. <ELECTRONICALLY SIGNED> By: Dm Au MD 04/01/20 1044 [id number] [id number] Dm Au MD /INF
[2020-04-01 11:40] VITALS: BP 115/41
--- NOTE | 2020-04-01 13:01 | NUR ---
faxed pertinent information to [facility]. Left message with admissions of tenative discharge in am.
[2020-04-01 15:50] VITALS: BP 101/89
--- NOTE | 2020-04-01 16:03 | NUR ---
ASSUMED CARE 0700. SLEEPY DURING MORING ASSESMENT. AWAKENED WHEN DR STANTON ROUNDED AND FOLLOWED DIRECTIONS. 2-3L NASAL CANNULA WITH BIPAP AT NIGHT AND PRN. BS ELEVATED TO 437 PRIOR TO NOON MEAL WITH ADDITONAL 10UNITS PER DR STANTON. AFIB THIS MORNING AND CONVERTED BACK TO N[facility] THIS AFTERNOON. CARDIAC DRIP DC'D AND CHANGED TO ORAL MEDICATION. DIALISIS TOMORROW. LIKELY DC TO [facility] TOMORROW. CALL LIGHT AND PERSONAL ITEMS IN REACH. AX1 WITH GATEBELT AND WALKER. UP TO CHAIR AND BEDSIDE COMMODE. INCONTINENT OF STOOL THIS MORNING, HAS NOT PRODUCED URINE.
[2020-04-01 20:05] VITALS: BP 138/56
--- NOTE | 2020-04-02 03:14 | NUR ---
ASSUMED CARE OF PATIENT AT 1900. PATIENT MAINTAINING OXYGEN SATURATIONS IN 90s WHILE ON ROOM AIR AND WORE BIPAP WHILE SLEEPING. PATIENT PULLED UP CENTRAL LINE DRESSING, CENTRAL LINE STILL IN PLACE. NEW DRESSING APPLIED. EDUCATED PATIENT ABOUT LEAVING CENTRAL LINE ALONE. PATIENT CALLED APPROPRIATELY AND WAS ABLE TO REPOSITION SELF IN BED WITH MINIMAL ASSISTANCE. PATIENT WAS NONCOMPLIANT WITH DIET AND REQUESTED MULTIPLE SNACKS AT BEGINNING OF SHIFT. PATIENT APPEARED TO REST WELL AFTER 2300 AND NO BEHAVIORS NOTED AFTER THIS TIME. PATIENT IS PROGRESSING TOWARDS GOALS.
[2020-04-02 05:15] VITALS: BP 120/106
[2020-04-02 07:24] VITALS: BP 103/43
[2020-04-02 11:14] VITALS: BP 121/56
--- NOTE | 2020-04-02 12:23 | NUR ---
patient with Afib/RVR updated Ch[facility] at [facility] no plan for discharge today.
--- NOTE | 2020-04-02 15:38 | NUR ---
FAXED CLINICAL UPDATE TO [place] RECEIVED CONFIRMATION AND LEFT MSG WITH JAVED IN ADM. DP TO FOLLOW.
--- NOTE | 2020-04-02 16:33 | NUR ---
ASSUMED CARE 0700, PROGRESSING TOWARD GOALS, DIALYSIS TODAY WITH 2.7L REMOVED. TREATED ELEVATE HEART RATE WITH LOPRESSOR DURING DIALYSIS. CONTINUES ON 2L NASAL CANNULA WITH PRN BIPAP USE. INCONTINENT OF BM TODAY.BS TREATE WITH ONE TIME NPH INSULIN. WILL DC TO SNF ONCE STABLE. [facility] CALLED FOR UPDATE. MCKENNA SPOKE TO RADHA FROM [facility].
[2020-04-02 16:49] VITALS: BP 124/64
[2020-04-02 19:22] VITALS: BP 155/74
[2020-04-02 23:38] VITALS: BP 135/51
[2020-04-03 03:07] VITALS: BP 149/74
--- NOTE | 2020-04-03 04:01 | NUR ---
PATIENTS CARES WERE ASSUMED AT SHIFT CHANGE. PATIENT WAS ASSESSED AND MEDS WERRE PASSED. PATIENT HAD A FEW BUST OF HEART RATE IN THE ONE TWENTIES. METOPROPOLOL 10MG IVP. PATIENT CONTINUES TO HAVE HIGH RANGES OF BLOOD SUGAR WITH ACCU CHECKS. PATIENT CONTINUES TO C/O BEING HUNGERY. HS SNACK WAS LOW CALORIE COUNT FOOD OF 2 PKS OF SODA CRACKERS AND WATER. A SWEET SNACK OF A POPCYCLE WAS GIVEN.
[2020-04-03 07:25] VITALS: BP 134/68
--- NOTE | 2020-04-03 09:23 | NUR ---
PT. TRANSFERED TO [facility] FOR BM. CONTINUES TO HAVE LOW BACK PAIN THAT IS CHRONIC. DENIES ANY CHEST PAIN, DENIES ANY JAW PAIN WELL. BRUIT AND THRILL WERE ESTABLISHED AT [facility] FOR DIALYSIS. PT. GOOD MOOD OVERALL SHE LISSETH "JUST DID NOT SLEEP WELL LAST NIGHT AT ALL".
[2020-04-03 11:30] VITALS: BP 115/46
--- NOTE | 2020-04-03 11:33 | NUR ---
UP IN CHAIR AT THIS TIME. CHRONIC BACK PAIN WAS IMPROVED WITH TYLENOL THIS AM EARLIER. NSR NO ECTOPY. DENIES ANY CHEST PAIN CURRENTLY.
--- NOTE | 2020-04-03 13:15 | NUR ---
Nutrition: Pt seen for LOS. Admit with HCAP, respiratory failure, sepsis. AMS. Hx DM, ESRD, hemodialysis MWF. On modified diet for dysphagia. ST following. No longer requiring nectar thick liquids but remains on mech altered ground consistency, carb controlled. REC add renal restrictions. Phos 5.2. BG 141-359 On SSI and glargine. Prednisone also likely aggravating BG. Appetite is good with po intake of meals documented 80-100%. No significant weight change per hx. Plan D/C to SNF when stable. Consider low nutrition risk.
[2020-04-03 15:10] VITALS: BP 92/41
--- NOTE | 2020-04-03 15:26 | NUR ---
[facility]. [facility] staff to call their admissions liadeb Huffman at [phone] or cell [phone] to coordinate. A chart copy will be needed, dc summary /instructions faxed and nursing to call report/family. Should they not be able to coordinate transport, [facility] can be contacted at [phone].
[2020-04-03 20:00] VITALS: BP 126/56
[2020-04-04 04:00] VITALS: BP 128/88
--- NOTE | 2020-04-04 06:35 | NUR ---
ASSUMED PT CARE AT 1900, PT IS AWAKE, MORE ALERT AND ORIENTED, MAKES NEEDS KNOWN, PT IS BEEN SINUS RHYTHM ON THE MONITOR, DENIES CHEST PAIN OR SOB, DENIED USE OF BIPAP AT NIGHT, STATED SHE IS USING OXYGEN INSTEAD, VSS, ASSESSMENTS CHARTED, MEDICATIONS GIVEN CHARTED, DIALYSIS NURSE IN THE ROOM, PT IS LAYING IN BED, NO DISTRESS NOTED AT THIS TIME
[2020-04-04 07:20] VITALS: BP 144/71
--- NOTE | 2020-04-04 09:16 | NUR ---
ASSUMED CARE OF PT AT SHIFT CHANGE, A&0X4, QUIET, SLEEPY, IN THE MIDST OF DIALYSIS, ONLY HALF A LITER REMOVED, GLAZIER APPRENTICE WAS HAVING SOME ISSUES W/HER ACCESS. SEE SEPARATE INTERVENTIONS FOR ASSESSMENTS. C/O PAIN GENERALIZED ALL OVER, ENCOURAGED HER W/THE DEEP SLOW EFFECTIVE BREATHING, SPOKE OF HER [place] HERITAGE. ENCOURAGED HER TO USE CALL LIGHT FOR NEEDS
[2020-04-04 11:20] VITALS: BP 122/52
--- NOTE | 2020-04-04 14:01 | NUR ---
CARDIOLOGY CALLED TO SAY DR. BURTON DID NOT WORKIN ON UNCLOTTING HD FISTULAS AND SUGGESTED DR. RICO. REMEDIED ORDER AND STUDENT DEVELOPMENT SPECIALIST CALLING IT IN. DR. STANTON SAID SHE THOUGHT THEY DID NOT WORK ON WEEKENDS AND IT WOULD BE TUESDAY. ENCOURAGED DIALYSIS NURSE TO CALL TO ENSURE FISTULA IS READY
[2020-04-04 15:45] VITALS: BP 153/54
[2020-04-04 19:50] VITALS: BP 112/49
--- NOTE | 2020-04-05 00:37 | NUR ---
ASSUMED PT CARE AT 1900, PT IS AWAKE ALERT AND ORIENTED, WATCHING TV, SR ON THE MONITOR, ASSESSMENTS CHARTED, BS 366, HOME CARE MUSIC THERAPIST NOTIFIED, ORDERS RECEIVED, INSULIN GIVEN PER ORDERS, PT IS REQUESTIN [facility], EDUCATED PT ON WATCHING HER SUGAR INTAKE, STATES UNDERSTANDING, REFUSED BIPAP, ON 2L NC, SATS STABLE, MEDICATION GIVEN PER DEC, C/O MUSCLE SPASM, MEDICATED PRN, NO FURTHER COMPLAINS, SLEEPING AT THIS TIME, NO DISTRESS NOTED, WILL CONTINUE TO MONITOR
[2020-04-05 03:50] VITALS: BP 114/35
[2020-04-05 07:40] VITALS: BP 109/66
--- NOTE | 2020-04-05 08:11 | NUR ---
ASSUMED CARE OF PT AT SHIFT CHANGE, HIGH BGS THRU NIGHT, ENCOURAGED PT TO BACK OFF ON TOO MANY SWEETS. SAID HER SLEEP WAS OKAY. GAVE TYLENOL FOR GENERAL ACHES AND PAINS, ENCOURAGED DEEP SLOW EFFECTIVE BREATHING FOR CIRCULATION. LIKES COFFEE, MUSCLES FEEL WEAK, TWO ASSIST. SEE SEPARATE INTERVENTIONS FOR ASSESSMENTS. WILL CONTINUE TO MONITOR. SATS EXCELLENT ON 2L, CHRONIC 02 USER AT HOME.
[2020-04-05 09:41] LABS: CALCIUM 9.3 mg/dL (8.5-10.1); CREATININE 9.2 mg/dL (0.6-1.0); POTASSIUM 4.4 mmol/L (3.5-5.1)
[2020-04-05 11:57] VITALS: BP 131/57
[2020-04-05 18:03] VITALS: BP 123/50
[2020-04-05 20:30] VITALS: BP 148/43
[2020-04-06 04:00] VITALS: BP 143/56
--- NOTE | 2020-04-06 04:59 | NUR ---
ASUME CARE 190. PT/VITALS STABLE. INTERMITTENT GENERALIZED PAIN. ASSESSMENT CHARTED. ADEQUATE REST/ NO DISTRESS NOTED THROUGH THE NIGHT. PROGRESSING WELL WITH POC. RESPIRATROY FUNCTION IMPROVING. PLAN IS TO CONTINUE TO WEAN OFF O2, FLUID RESTRICTION AND FOLLOW WITH NEPHROLOGY POC, DECLOT AV FISTULA ON TUESDAY AND POSSIBLY PLACE TEMP DIALYSIS CATH. WOULD CONTINUE TO MONITOR AND FOLLOW WITH POC
[2020-04-06 07:25] VITALS: BP 119/105
--- NOTE | 2020-04-06 07:54 | NUR ---
ASSUMED CARE OF PT AT SHIFT CHANGE, REPORTS OF SOME NAUSEA EARLY A.M. WILL CONTINUE TO MONITOR. PT IS A&0X4, IN GOOD SPIRITS IN SPITE OF INTERMITTENT NAUSEA, SLIGHTLY FORGETFUL, ENCOURAGED HER TO USE CALL LIGHT FOR ANY NEEDS AND SHE DOES. STATES IT TAKES TWO STAFF TO WALK W/HER. SEE SEPARATE INTERVENTIONS FOR ASSESSMENTS.
[2020-04-06 11:15] VITALS: BP 156/49
[2020-04-06 15:20] VITALS: BP 132/41
[2020-04-06 20:46] VITALS: BP 140/92
[2020-04-07] VITALS (7 sets, daily range): BP systolic 138–172; BP diastolic 39–123
--- NOTE | 2020-04-07 00:18 | NUR ---
PATIENT IS A&O X4. COOPERATIVE WITH CARE. NO NAUSEA NOTED. NPO AT 2359 ON 04/06/2020. BS MONITORED PER ORDER. WILL MONITOR.
[2020-04-07 06:38] LABS: PROTIME 9.9 Seconds (9.3-11.4)
--- NOTE | 2020-04-07 06:43 | NUR ---
PATIENT A&O X4. COOPERATIVE WITH CARE. [facility] PIC X3 PATENT FOR AM BLOOD DRAW. PATIENT HAS BEEN NPO SINCE 2358 ON 04/06/2020 FOR AM PROCEDURE. DENIES PAIN. RESTED OFF AND ON DURING THE NIGHT. BS MONITORED PER ORDER. WILL MONITOR.
[2020-04-07] MEDS ORDERED: CARDIZEM CD 18180 M3 PO (10:19)
[2020-04-07] MEDS ORDERED: METOPROLOL SUCC50 MG PO (10:19)
[2020-04-07] MEDS ORDERED: VOLTAREN GEL 1100 G1 TOP (10:19)
[2020-04-07] MEDS ORDERED: TRAZODONE HCL100 MG PO (10:19)
[2020-04-07] MEDS ORDERED: LANTUS SUBQ (10:19)
--- NOTE | 2020-04-07 18:00 | NUR ---
ASSUMMED PT CARE AT APPROXIMATELY 0700. PT A&O X3 IN AM. A&O X4 IN AFTERNOON. PT DROWSY IN AM. ASSESSMENT CHARTED. FALL PRECAUTIONS IN PLACE. PT DENIES HAVING CHEST PAIN. PT STATED SHE HAS SOB ON EXERSION. PT O2 SAT STABLE. PT DENIES HAVING ACUTE PAIN. FOLLOWED HYPOGLYCEMIC PROTOCOL THROUGHOUT THE SHIFT. INFORMED DR. STANTON OF PT'S LOWER THAN NORM BLOOD SUGAR AND PT STATING SHE FELT DIZZY. DR. STANTON HELD INSULIN FOR HS AND TOMORROW. EDUCATED PT ABOUT POC. PT STATED UNDERSTANDING. PT COULD NOT HAVE IR PROCEDURE DUE TO PT HAVING ELIQUIS LAST NIGHT. ELIQUIS HELD. PT HAD DIALYSIS TODAY. PT COMFORTABLE. VITAL SIGNS STABLE. BLOOD SUGARS STABLE. ENCOURAGED PT TO EAT AND DRINK. PT DENIES HAVING FURTHER CONCERNS.
[2020-04-08 00:18] VITALS: BP 145/47
--- NOTE | 2020-04-08 03:34 | NUR ---
RECIEVED CARE OF THIS PATIENT AT 1900. PATIENT ALERT AND ORIENTED X4 BUT FORGETFUL AT TIMES. HAD DIALYSIS YESTERDAY. REMOVED 3L. FISTULA IN L UPPER ARM. HAS GOOD BRUIT AND THRILL. PATIENT HAS BEEN NPO SINCE [place] FOR A PROCEDURE ON FISTULA TODAY. ACCUCHECK WAS 148, INSULIN HELD PER DR'S ORDERS. DENIES PAIN. SLEPT MOST OF THE NIGHT. HAS O2 AT 2L/NC. NO SCD'S D/T POSS DVT.
[2020-04-08 05:13] VITALS: BP 138/56
[2020-04-08 07:25] VITALS: BP 123/42
[2020-04-08 11:15] VITALS: BP 115/50
--- NOTE | 2020-04-08 15:19 | NUR ---
ALERT, ORIENTED. I.R. INTERVENTION FOR LEFT ARM DIALYSIS FISTULA DELAYED UNTIL TOMORROW. WORKING WITH PT AND OT. ASSISTED TO BR FOR FORMED BM. MEDICATED FOR NECK PAIN WITH TYLENOL. SR PER TELE. CLOSE TO NURSES' STATION; FALL PRECAUTIONS IN PLACE. WILL CONTINUE TO FOLLOW CLOSELY.
--- NOTE | 2020-04-08 16:16 | NUR ---
Patient to tenatively dc to [facility] in am. Sp with Kenzie in admissions at [facility]. Faxed updated information including COVID test.
[2020-04-08 17:10] VITALS: BP 135/36
[2020-04-08 19:46] VITALS: BP 122/36
[2020-04-09] VITALS (7 sets, daily range): BP systolic 107–129; BP diastolic 28–89
--- NOTE | 2020-04-09 05:33 | NUR ---
ASSUMED CARE OF PATIENT AT 1900. PATIENT C/O ITCHING AROUND IJ SITE. OBTAINED ONETIME ORDER FOR BENADRYL. PATIENT HAD NO FURTHER C/O ITCHING AND RESTED WELL THROUGH NIGHT. PATIENT HAD NO COMPLAINTS OF PAIN. PATIENT IS PROGRESSING TOWARDS GOALS.
--- NOTE | 2020-04-09 09:37 | NUR ---
07:30-PT. C/O LEG PAINS AT THIS TIME, REQUESTED HER SCD'S BE PLACED BACK ON HER AT THIS TIME WHICH I DID SO. DISCUSSED HER UPCOMING AV ISTUAL CHANGE OUT TODAY AND POSSIBLE RETURN TO [facility] POST THE PROCEDURE.
--- NOTE | 2020-04-09 10:38 | NUR ---
PT. RESTING WITH EYES CLOSED AT THSI TIME, TOLD ME A FEW MINUTES PRIOR SHE IS SUPER "READY TO EAT"..ENCOURAGED HER TO HANG ON AND CONTINUE WITH BEING NPO FOR HER AV FISTUAL CHANGE OUT TODAY.
[2020-04-09 11:13] LABS: HEMATOCRIT 28.3 % (37.0-47.0); HEMOGLOBIN 9.5 gm/dL (12.0-15.0); MCH 32.7 pg (26.0-34.0); MCHC 33.6 g/dL (28.0-37.0); MCV 97.3 fL (80.0-100.0); RBC 2.91 mil/uL (4.20-5.00); RDW 14.1 % (10.5-14.5)
--- NOTE | 2020-04-09 11:32 | NUR ---
[facility] CALLED AND SPOKE WITH [place] AND EXPLAINED SHE IS ON THE SCHEDULE FOR TODAY'S PROCEDURE BUT SHE HAS NOT GOT DOWN FOR SUCH THUS FAR YET. FAXING OVER SOME PAPERWORK NOW FOR THEM TO GET AN IDEA OF HER CARE AND HER COVID RESULTS WELL.
[2020-04-09 12:43] LABS: CALCIUM 9.3 mg/dL (8.5-10.1); CREATININE 8.6 mg/dL (0.6-1.0); MAGNESIUM 2.2 mg/dL (1.8-2.4)
[2020-04-09 12:53] LABS: POTASSIUM 6.2 mmol/L (3.5-5.1)
--- NOTE | 2020-04-09 14:04 | NUR ---
PT/ DOWN TO INTERVENTIONAL RADIOLOGY TA THIS TIME. DENIES PAIN BUT "STARVING RIGHT NOW". TOLD HER SHE CAN EAT AFTER THE PROCEDURE THIS AFTERNOON AND KEPT HER TRAY WITH UNIT FOR SUCH. DENIES ANY SOB, DENIES CP WELL.
--- NOTE | 2020-04-09 15:02 | NUR ---
patient with tenative dc today however needs dialysis today and will rec late in day as patient is in procedure for dialysis cath.
--- NOTE | 2020-04-09 18:07 | NUR ---
16:00PM BACK FROM PROCEDURE, ATE 2 SANDWICHES AND REQUESTING MORE FOOD. SHE TOLERATED PROCEDURE WELL TODAY. DENIES ANY CHEST PAIN, NOR ANY SOB, BACK ON 2 LITERS NASAL CANNULA.
[2020-04-10 03:50] VITALS: BP 117/19
--- NOTE | 2020-04-10 04:57 | NUR ---
ASSESSMENT DOCUMENTED.PT BEEN RESTING IN NO ACUTE DISTRESS.A/OX4.S/P DIALYSIS AT THE SHIFT,NO CONCERNS VOICED,DIALYSIS CATHETER IN PLACE.PT DENIES ANY NEEDS AT THIS TIME.POSSIBLE DISCHARGE TODAY.
--- NOTE | 2020-04-10 07:59 | NUR ---
PT. AWAKE THIS AM ON ASSESSMENT. SHE TOLD ME THAT SHE DID NOT WEAR HER BIPAP MACHINE LAST NIGHT IT "GIVES HER A HEADACHE". WE HAD A DISCUSSION IN REGARDS TO THE NEED FOR HER TO WEAR IT AT NIGHT TO NOT GET A HEADACHE BUT SHE UNITERESTED IN THE TOPIC. PT. CONTINUES TO WANT TO EAT OFTEN AND ASKED FOR POPSICLES THIS AM, WILL PROVIDE. PT. CORTNEYOS REPORTING A HEADACHE THIS AM OF A 01/10 AND AGAIN EXPLAINED TO HER AGAIN THE POSSIBLE CAUSE NOT WEARING HER BIPAP QHS. MEDICATED WITH TYLENOL AT THIS TIME FOR SUCH.
[2020-04-10 08:16] VITALS: BP 114/33
[2020-04-10 11:48] VITALS: BP 109/52
--- NOTE | 2020-04-10 11:51 | NUR ---
PT. MOVED TO CHAIR NEAR BEDSIDE AT THIS TIME, AMBULATED FAIRLY WELL, DENIES ANY FEELING OF BEING DIZZY OR LIGHTHEADED POST AMBULATION. PT. IN GOOD SPIRTIS TODAY OVERALL AND COVID SWAB JUST PERFORMED AND SENT TO THE LAB FOR HER RETURN TO HER FACILITY.
--- NOTE | 2020-04-10 15:45 | NUR ---
PT DISCHARGING TODAY TO [facility] FAXED DC ORDERS/SUMMARY TO FACILITY SPOKE WITH JAVED IN ADM SHE RECEIVED ORDERS AND ARRANGED TRANSPORT BY [facility] FOR 1730 TODAY. COVID 19 TEST ORDERS AND CAME BACK NEGATIVE FAXED TEST RESULT TO FACILITY RECEIVED CONFIRMATIN AND NOTIFIED PT'S NIECE OF DC AND TIME OF TRANSPORT. UNIT NOTIFIED AND CHART COPY DONE. RN TO CALL REPORT TO [phone].
--- NOTE | 2020-04-10 17:35 | HC ---
[facility] [place] [address] CONSULTATION Name: AYLIN MORALES Room #: 202-P [facility] IN M.R.#: [id number] Admission: 03/27/20 Attend Phys: Shaquille Rousseau MD Discharge: 04/10/20 Date of : 68 Report #: [id number] THIS REPORT FOR: cc: Franki Bhakta MD,Franki Caal,Darvin Campbell MD ~ CC: Shaquille Bhakta DATE OF SERVICE: 03/27/2020 HISTORY OF PRESENT ILLNESS: This is a 49-year-old female patient who was evaluated by me for altered mental status. The patient is unable to provide any history and I tried to call the contact in the computer and it directly goes to their voice mail. So, history is entirely from the record. She was admitted with altered mental status. It looks like she is on supplemental oxygen in the baseline. It has to be increased. She is also on dialysis. She is in [facility] halfway, I do not know why she is in halfway, records indicate that she was in [facility] at one time, and she is sleepy and snoring. Some of the records indicate that she was responsive intermittently where she at least responded to pain. REVIEW OF SYSTEMS: Indicate that she is on anticoagulation, I am not sure of the indication, but some of the records indicate that it may be because of DVT. The blood sugars have been running in 200. One of the records indicates that the family has indicated that usually she is alert and uses a wheelchair, I am not sure why she uses a wheelchair. A 14-point review of system was carried out and this is all I can get in this patient. PAST MEDICAL HISTORY: Looks like it is positive for uncontrolled hypertension, end-stage renal disease, disequilibrium syndrome. Her EKG shows prolonged QT interval. FAMILY HISTORY: Unavailable. SOCIAL HISTORY: She lives in a halfway. PHYSICAL EXAMINATION: Pretty limited. She got some Ativan, she is not responding, she did not do anything for me. I cannot tell whether she can move anything. I do not think she has meningeal sign, but I cannot tell. She has no reflexes, but I do not know what her baseline is. Her temperature is 97.1, blood pressure is 189/43. She did have a CT scan of the head in the Emergency Room and that showed no acute process. LABORATORY DATA: Labs indicate a normal white count, she has been afebrile here. Her sodium is somewhat low at 133. That is all the exam which is [facility] [address] [place] [address] CONSULTATION Name: AYLIN MORALES Room #: 202-P [facility] IN M.R.#: [id number] Admission: 03/27/20 Attend Phys: Shaquille Rousseau MD Discharge: 04/10/20 Date of : 68 Report #: [id number]. IMPRESSION: Pretty difficult to form in this patient. Hopefully, we can reach some family. It is most likely encephalopathy because she has numerous comorbidities. My recommendation is to get an EEG done and we will continue to make an effort to reach the family, see what her condition is. She does have some increased WBC count, some QT prolongation and we will check a B12 and thyroid in this patient. Dr. You will follow up this patient with you from tomorrow. <ELECTRONICALLY SIGNED> By: Darvin Caal MD 04/10/20 1735 1758 06 Darvin Caal MD /nt
--- NOTE | 2020-04-10 17:37 | EEG ---
[facility] [place] [address] ELECTROENCEPHALOGRAM Name: AYLIN MORALES Room #: 202-P [facility] IN M.R.#: [id number] Admission: 03/27/20 Attend Phys: Shaquille Rousseau MD Discharge: 04/10/20 Date of : 68 Report #: [id number] THIS REPORT FOR: //name// CC: Shaquille Bhakta DATE OF SERVICE: 03/28/2020 This patient is being evaluated for altered mental status. EEG was done by placing the electrode by standard 10-20 system of electrode placement. Both referential and sequential montages were used for recording. Background activity in this patient's EEG is about 7-8 Hz and 30 microvolt. It is a very difficult EEG because lot of artifact is present. Photic stimulation is unremarkable. No active epileptiform activity was noticed. IMPRESSION: This patient's EEG is very difficult to interpret because there is a lot of artifact present. It appeared to be slow which can be consistent with encephalopathy, but it is a nonspecific finding, which can occur with dementia, effect of psychotropic medication, drowsiness, etc. Clinical correlation is recommended. <ELECTRONICALLY SIGNED> By: Darvin Caal MD 04/10/20 1737 1627 1631 Darvin Caal MD /nt
== END 2020-04-10 17:16 | DRG 871 ==
LOC: ER 03:44 → EROBS 05:46 → ICU 05:46 → 2N 03-29 18:21
PROVIDERS: Emergency Medicine; Hospitalist; Internal Medicine; Nurse Practitioner; Nurse Practitioner Family; Pediatrics; Psychiatry & Neurology Neuromuscular Medicine; ADMIT Internal Medicine; ATTEND Internal Medicine
PROC: 02HV33Z Insertion of Infusion Device into Superior Vena Cava, Percutaneous Approach (ICD-10-PCS; principal; 2020-03-27)
PROC: 5A1D70Z Performance of Urinary Filtration, Intermittent, Less than 6 Hours Per Day (ICD-10-PCS; 2020-03-28)
PROC: 5A09357 Assistance with Respiratory Ventilation, Less than 24 Consecutive Hours, Continuous Positive Airway Pressure (ICD-10-PCS; 2020-04-01)
PROC: 5A09357 Assistance with Respiratory Ventilation, Less than 24 Consecutive Hours, Continuous Positive Airway Pressure (ICD-10-PCS; 2020-04-02)
PROC: 5A09357 Assistance with Respiratory Ventilation, Less than 24 Consecutive Hours, Continuous Positive Airway Pressure (ICD-10-PCS; 2020-04-06)
PROC: 5A1D70Z Performance of Urinary Filtration, Intermittent, Less than 6 Hours Per Day (ICD-10-PCS; 2020-04-09)
PROC: 02H633Z Insertion of Infusion Device into Right Atrium, Percutaneous Approach (ICD-10-PCS; 2020-04-09)
PROC: 0JH63XZ Insertion of Tunneled Vascular Access Device into Chest Subcutaneous Tissue and Fascia, Percutaneous Approach (ICD-10-PCS; 2020-04-09)
PROC: B548ZZA Ultrasonography of Superior Vena Cava, Guidance (ICD-10-PCS; 2020-04-09)
PROC: B5181ZA Fluoroscopy of Superior Vena Cava using Low Osmolar Contrast, Guidance (ICD-10-PCS; 2020-04-09)
DX: A41.9 Sepsis, unspecified organism (principal); N18.6 End stage renal disease; G92 Toxic encephalopathy; J96.21 Acute and chronic respiratory failure with hypoxia; J96.22 Acute and chronic respiratory failure with hypercapnia; N39.0 Urinary tract infection, site not specified; D68.59 Other primary thrombophilia; E87.1 Hypo-osmolality and hyponatremia; D68.9 Coagulation defect, unspecified; Z68.41 Body mass index [BMI] 40.0-44.9, adult; I12.0 Hypertensive chronic kidney disease with stage 5 chronic kidney disease or end stage renal disease; T82.868A Thrombosis due to vascular prosthetic devices, implants and grafts, initial encounter; I16.0 Hypertensive urgency; J45.909 Unspecified asthma, uncomplicated; E66.01 Morbid (severe) obesity due to excess calories; E87.8 Other disorders of electrolyte and fluid balance, not elsewhere classified; E11.22 Type 2 diabetes mellitus with diabetic chronic kidney disease; D63.8 Anemia in other chronic diseases classified elsewhere; Z20.828 Contact with and (suspected) exposure to other viral communicable diseases; I48.0 Paroxysmal atrial fibrillation; Z86.718 Personal history of other venous thrombosis and embolism; Z87.891 Personal history of nicotine dependence; Z86.711 Personal history of pulmonary embolism; Z99.2 Dependence on renal dialysis; Y83.8 Other surgical procedures as the cause of abnormal reaction of the patient, or of later complication, without mention of misadventure at the time of the procedure; Y92.238 Other place in hospital as the place of occurrence of the external cause
CPT/HCPCS: 10078; 10081; 10203; 32100

== ENCOUNTER 2020-05-07 11:35 | Emergency (ER) | payer OTHER ==
[~2020-05-07] VITALS: Ht 160 cm; Wt 118.2 kg
[~2020-05-07 11:35] MED LIST changes: +CARDIZEM CD 18180 M3 PO; +FERRIC CITRATE210 MG PO; +LANTUS SUBQ; +MECLIZINE HCL25 M1 PO; +METOPROLOL SUCC50 MG PO; +OMEPRAZOLE 20 M20 M1 PO; +PROTONIX40 M1 PO; +SENNA S TABLET1 EACH PO; +SENSIPAR 30 MG30 M1 PO; +TOPROL XL100 MG PO; +TRAZODONE HCL100 MG PO; +VOLTAREN GEL 1100 G1 TOP; +[UNRECOGNIZED DRUG - OTHER] PO
[2020-05-07] MEDS ORDERED: CATAPRES0.1 MG PO (13:09)
[2020-05-07] MEDS ORDERED: AMIODARONE HCL400 MG PO (13:11)
[2020-05-07] MEDS ORDERED: LOPRESSOR50 MG PO (13:12)
[2020-05-07] MEDS ORDERED: NORVASC 2.5 MG2.5 M1 PO (13:13)
[2020-05-07] MEDS ORDERED: MIRALAX119 GM PO (13:14)
[2020-05-07 13:33] LABS: HEMATOCRIT 30.7 % (37.0-47.0); MCH 32.1 pg (26.0-34.0); MCHC 32.6 g/dL (28.0-37.0); MCV 98.7 fL (80.0-100.0); PLATELET COUNT 225 thou/uL (150-400); RBC 3.11 mil/uL (4.20-5.00); WBC 8.6 thou/uL (4.0-11.0)
--- NOTE | 2020-05-07 13:38 | EKG ---
[facility] [place] [address] ELECTROCARDIOGRAM REPORT Name: AYLIN MORALES Room #: 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
[2020-05-07 13:41] LABS: CALCIUM 9.9 mg/dL (8.5-10.1); CREATININE 8.9 mg/dL (0.6-1.0); POTASSIUM 4.6 mmol/L (3.5-5.1)
[2020-05-07 13:46] LABS: ALBUMIN 3.4 g/dL (3.4-5.0); TOTAL BILIRUBIN 0.4 mg/dL (0.2-1.0); TOTAL PROTEIN 6.6 g/dL (6.4-8.2)
[2020-05-07 13:48] LABS: URINE BILIRUBIN NEGATIVE (Negative); URINE BLOOD 1+ (Negative); URINE CLARITY SL CLOUDY; URINE COLOR YELLOW; URINE GLUCOSE-RANDOM* TRACE (Negative); URINE KETONES NEGATIVE (Negative); URINE LEUKOCYTES-REFLEX 1+ (Negative); URINE NITRITE-REFLEX NEGATIVE (Negative); URINE PROTEIN (DIPSTICK) 2+ (Negative); URINE SPECIFIC GRAVITY 1.015 (1.005-1.035); URINE UROBILINOGEN 0.2 E.U./dl (0.2-1.0)
[2020-05-07 14:15] LABS: CASTS None Seen /LPF (None Seen); CRYSTALS None Seen /LPF (None Seen); SQUAMOUS 4-10 Moderate /LPF (0-3)
[2020-05-07 14:16] LABS: BACTERIA-REFLEX 1-9 Few /HPF (None Seen); URINE RBC 0-2 Rare /HPF (0-2)
[2020-05-07 14:20] LABS: ABSOLUTE NEUTROPHILS 6.2 thou/uL (1.4-8.2); ANISOCYTOSIS 1+; POLYCHROMASIA OCCASIONAL
[2020-05-07] MEDS ORDERED: ZOFRAN ODT4 MG DISSOLVE (15:51)
[2020-05-07 17:45] VITALS: BP 121/40
== END 2020-05-07 18:30 ==
LOC: ER 11:35
PROVIDERS: Physician Assistant
DX: T85.621A Displacement of intraperitoneal dialysis catheter, initial encounter (principal); R11.2 Nausea with vomiting, unspecified; R42 Dizziness and giddiness; Z20.828 Contact with and (suspected) exposure to other viral communicable diseases; E66.01 Morbid (severe) obesity due to excess calories; E11.22 Type 2 diabetes mellitus with diabetic chronic kidney disease; I12.0 Hypertensive chronic kidney disease with stage 5 chronic kidney disease or end stage renal disease; N18.6 End stage renal disease; Z86.718 Personal history of other venous thrombosis and embolism; Z86.711 Personal history of pulmonary embolism; Z99.2 Dependence on renal dialysis; Z79.899 Other long term (current) drug therapy; Z79.4 Long term (current) use of insulin; Z68.43 Body mass index [BMI] 50.0-59.9, adult; Y84.8 Other medical procedures as the cause of abnormal reaction of the patient, or of later complication, without mention of misadventure at the time of the procedure; Y92.238 Other place in hospital as the place of occurrence of the external cause

== ENCOUNTER 2020-05-07 20:01 | Emergency (ER) | payer OTHER ==
[~2020-05-07] VITALS: Ht 160 cm; Wt 125.7 kg
[~2020-05-07 20:01] MED LIST changes: +AMIODARONE HCL400 MG PO; +CATAPRES0.1 MG PO; +LOPRESSOR50 MG PO; +MIRALAX119 GM PO; +NORVASC 2.5 MG2.5 M1 PO; +ZOFRAN ODT4 MG DISSOLVE
[2020-05-08 00:10] VITALS: BP 101/74
== END 2020-05-08 01:06 | disposition home or self-care (01) ==
LOC: ER 20:01
DX: R42 Dizziness and giddiness (principal); R11.2 Nausea with vomiting, unspecified; R53.1 Weakness; J45.909 Unspecified asthma, uncomplicated; E11.22 Type 2 diabetes mellitus with diabetic chronic kidney disease; I12.0 Hypertensive chronic kidney disease with stage 5 chronic kidney disease or end stage renal disease; N18.6 End stage renal disease; Z99.2 Dependence on renal dialysis; Z86.718 Personal history of other venous thrombosis and embolism; Z86.711 Personal history of pulmonary embolism; Z79.899 Other long term (current) drug therapy; Z79.4 Long term (current) use of insulin

== ENCOUNTER → 2020-05-22 | Outpatient (CLI) | payer OTHER | LOC: SPEC 11:02 | PROVIDERS: ATTEND Radiology Diagnostic Radiology | DX: Z45.2 Encounter for adjustment and management of vascular access device (principal); I12.0 Hypertensive chronic kidney disease with stage 5 chronic kidney disease or end stage renal disease; E11.22 Type 2 diabetes mellitus with diabetic chronic kidney disease; E11.40 Type 2 diabetes mellitus with diabetic neuropathy, unspecified; N18.6 End stage renal disease; Z99.2 Dependence on renal dialysis; E66.01 Morbid (severe) obesity due to excess calories; G47.00 Insomnia, unspecified; K21.9 Gastro-esophageal reflux disease without esophagitis; F32.89 Other specified depressive episodes; F80.0 Phonological disorder; E78.49 Other hyperlipidemia; Z86.711 Personal history of pulmonary embolism; Z86.718 Personal history of other venous thrombosis and embolism; Z79.84 Long term (current) use of oral hypoglycemic drugs; Z79.82 Long term (current) use of aspirin; Z79.899 Other long term (current) drug therapy; Z98.890 Other specified postprocedural states ==

== ENCOUNTER 2020-09-04 17:37 | Inpatient (IN) | payer OTHER ==
[~2020-09-04] VITALS: Ht 152.4 cm; Wt 113.2 kg
--- NOTE | ~2020-09-04 | HC ---
[facility] [place] [address] CONSULTATION Name: AYLIN MORALES Room #: 349-I ADM IN M.R.#: [id number] Admission: 09/04/20 Attend Phys: Shaquille Rousseau MD Discharge: Date of : 68 Report #: [id number] THIS REPORT FOR: cc: Franki Bhakta MD, Srinath MD Al-Absi,Pablito Miranda MD ~ REASON FOR CONSULTATION: Shortness of breath and end-stage renal disease. REASON FOR PRESENTATION: Shortness of breath. HISTORY OF PRESENT ILLNESS: This is a very well-known patient to me. She is a noncompliant, end-stage renal disease from [facility]. She dialyzes every Tuesday, Tuesday and Tuesday. She is known to have end-stage renal disease due to longstanding diabetes mellitus and hypertension. She had missed her dialysis because she was so weak to go to the dialysis. She presented with shortness of breath, was found to be hypoxic and tested positive for COVID. She was admitted to further evaluate her condition and I was consulted to manage her end-stage renal disease. PAST MEDICAL HISTORY: 1. End-stage renal disease. 2. Deep venous thrombosis. 3. PE. 4. Hypertension. 5. Chronic obstructive pulmonary disease. 6. Morbid obesity. 7. Atrial fibrillation. 8. History of hypercoagulable condition. 9. Hyperparathyroidism. MEDICATIONS: 1. Insulin. 2. Omeprazole. 3. Sensipar. 4. Amiodarone. 5. Amlodipine. ALLERGIES: None. SOCIAL HISTORY: Resides in a nursing facility. No drug or alcohol abuse. FAMILY HISTORY: Significant for diabetes mellitus. REVIEW OF SYSTEMS: CONSTITUTIONAL: Significant for chills. [facility] [address] [place] [address] CONSULTATION Name: AYLIN MORALES Room #: 349-I ADM IN [place].#: [id number] Admission: 09/04/20 Attend Phys: Shaquille Rousseau MD Discharge: Date of : 68 Report #: [id number] RESPIRATORY: Significant for shortness of breath. CARDIOVASCULAR: No chest pain or palpitation. GASTROINTESTINAL: No nausea or vomiting. MUSCULOSKELETAL: Occasional myalgias and back pain. SKIN: No rash or ulcerations. NEUROLOGICAL: No headache, no dizziness. PHYSICAL EXAMINATION: GENERAL: She is alert, oriented. VITAL SIGNS: Her blood pressure most recently was 148/84. She was extremely hypertensive yesterday at 102/110. Temperature is 36.2, pulse rate is 90. HEAD AND NECK: No jugular venous distention. CHEST: Bilateral crackles. CARDIOVASCULAR: No rub. ABDOMEN: Soft. EXTREMITIES: Lower extremities, +1 edema. LABORATORY DATA: Hemoglobin is 8.6. White blood cell count is 11.4. Sodium is 137, potassium is 5.1, BUN is 102, creatinine is 11. ASSESSMENT: 1. End-stage renal disease. 2. Pulmonary edema. 3. COVID-19. 4. Respiratory failure. 5. Extreme noncompliance. PLAN: 1. We will arrange for the patient to have usual hemodialysis today. She needs aggressive ultrafiltration tomorrow. 2. Counseled about compliance. 3. Continue with the usual COVID-19 treatment. 4. We will continue to follow. By: 0816 0041 Pablito Alvares MD /nt
[2020-09-04 17:38] VITALS: BP 126/76
[2020-09-04 18:06] LABS: BE(vivo) -0.7 mmol/L (-2 to +3); HCO3 24.1 mmol/L (22.0-26.0); PCO2 40.3 mmHg (35.0-45.0); PO2 88.5 mmHg (80.0-100.0); pH 7.394 (7.360-7.450); sO2 96.7 % (92.0-98.0)
[2020-09-04 18:31] LABS: BASOPHILS 0.4 % (0.0-2.0); EOSINOPHILS 6.4 % (0.0-3.0); HEMATOCRIT 27.3 % (37.0-47.0); HEMOGLOBIN 8.6 gm/dL (12.0-15.0); LYMPHOCYTES 4.9 % (24.0-44.0); MCH 28.7 pg (26.0-34.0); MCHC 31.3 g/dL (28.0-37.0); MCV 91.5 fL (80.0-100.0); MONOCYTES 9.6 % (1.0-8.0); POLYS 78.7 % (36.0-66.0); RBC 2.98 mil/uL (4.20-5.00); RDW 15.6 % (10.5-14.5); WBC 11.4 thou/uL (4.0-11.0)
[2020-09-04 18:44] LABS: CALCIUM 9.6 mg/dL (8.5-10.1); POTASSIUM 5.1 mmol/L (3.5-5.1)
[2020-09-04 18:53] LABS: ALBUMIN 2.6 g/dL (3.4-5.0); TOTAL BILIRUBIN 1.1 mg/dL (0.2-1.0); TOTAL PROTEIN 5.8 g/dL (6.4-8.2); TROPONIN-I 0.06 ng/mL (<0.06)
[2020-09-04 19:16] LABS: PLATELET COUNT 154 thou/uL (150-400)
[2020-09-04 19:45] VITALS: BP 182/110
--- NOTE | 2020-09-04 20:12 | NUR ---
ATTEMPTED TO CALL REPORT TWICE TO 3W, RN IN ANOTHER ROOM, ROOM NOT READY. RN ON PHONE IS GOING TO PREPARE ROOM FOR ADMIT
[2020-09-04 20:53] VITALS: BP 120/83
[2020-09-04 21:10] VITALS: BP 149/83
--- NOTE | 2020-09-04 21:20 | NUR ---
2105 PT TO FLOOR FROM ER, RESP 42 AND LABORED, PLACED ON BIPAP BY RT, VITAL SIGNS TAKEN AND STABLE, CARDIZEM GTT GOING PER DEC, WILL CHART ADMISSION ASSESSMENT ONCE PT IS ABLE TO SPEAK, ERNST CATH IN PLACE, FALL PRECAUTIONS IN PLACE SCDS IN PLACE
[2020-09-04 22:00] VITALS: BP 128/70
[2020-09-05] VITALS (8 sets, daily range): BP systolic 90–162; BP diastolic 68–100
--- NOTE | 2020-09-05 05:07 | NUR ---
0430 PT REMOVED BIPAP AND IS REFUSING TO HAVE IT PLACED AGAIN, O2 6L TOLERATING WELL INSTEAD. WILL CONTINUE TO MONITOR, PT IS ON CONTINUOUS PULSE OXIMETRY
--- NOTE | 2020-09-05 07:02 | EKG ---
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
--- NOTE | 2020-09-05 08:54 | NUR ---
bp is elevated, but dialysis nurse to floor stating she will start dialysis, will monitor cardizem gtt and dialysis nurse notified of metoprolol given this am and cardizem gtt, and to alert this nurse with lowering bp probably close to 120 systolic or lower
[2020-09-05 10:12] LABS: RBC 2.2 mil/uL (4.20-5.00); WBC 7.8 thou/uL (4.0-11.0)
[2020-09-05 10:14] LABS: MCH 29.6 pg (26.0-34.0); MCHC 32.5 g/dL (28.0-37.0); MCV 91.1 fL (80.0-100.0); RDW 15.7 % (10.5-14.5)
[2020-09-05 10:22] LABS: CALCIUM 8.8 mg/dL (8.5-10.1); POTASSIUM 5.3 mmol/L (3.5-5.1)
[2020-09-05 10:25] LABS: CREATININE 8.3 mg/dL (0.6-1.0)
[2020-09-05 10:35] LABS: HEMOGLOBIN 6.5 gm/dL (12.0-15.0)
--- NOTE | 2020-09-05 13:18 | NUR ---
ASSESSMENT: CM REVIEWED CHART. PT IS FROM [facility] AND WAS RECENTLY ON SNF UNIT. PT WAS ADMITTED DUE TO SOB/WEAKNESS AND TESTED POSITIVE FOR COVID 19 HERE ON 09/04. PT REMAINS IN ENHANCED ISOLATION. CM ATTEMPTED TO REACH PT IN HER ROOM BUT NO ANSWER. PT IS GETTING DIAYSIS TODAY AND IS ESRD, NORMAL SCHEDULE IS -- DIAYLSIS AT [facility]. PT HAS AFIB AND IS ON DILT GTT. PT IS ON IV ANBX AND IV STEROIDS AND PULM IS FOLLOWING. PT WAS ON BIPAP ON ADMISSION AND IS NOW ON 6L OXYGEN. CM SPOKE [facility] WHO IS PTS DPOA AND SHE STATES PLAN IS FOR PT TO GO BACK TO [facility] IF ABLE AT DISCHARGE. CM LEFT WITH LEONEL IN ADMISSIONS AND FAXED CLINICAL TO FACILITY. NO PLANS FOR WEEKEND DISCHARGE. CM WILL CONTINUE TO FOLLOW.
--- NOTE | 2020-09-05 19:38 | NUR ---
PATIENT RESTED IN ROOM THROUGH THE DAY. SHE IS ALERT ORIENTED X4. HAD DIALYSIS THIS AFTERNOON. RESPIRATIONS ARE NON LABORED. RESTARTED CARDIZEM DRIP HER PULSE WAS GREATER THAN 100 AND INCREASING.
[2020-09-06] VITALS (7 sets, daily range): BP systolic 85–126; BP diastolic 40–75
[2020-09-06 09:51] LABS: HEMATOCRIT 25.4 % (37.0-47.0); HEMOGLOBIN 8.3 gm/dL (12.0-15.0); MCH 29.4 pg (26.0-34.0); MCHC 32.5 g/dL (28.0-37.0); MCV 90.4 fL (80.0-100.0); PLATELET COUNT 157 thou/uL (150-400); RBC 2.81 mil/uL (4.20-5.00); RDW 15.7 % (10.5-14.5); WBC 2.3 thou/uL (4.0-11.0)
[2020-09-06 13:12] LABS: ABSOLUTE NEUTROPHILS 1.9 thou/uL (1.4-8.2); ANISOCYTOSIS 1+
--- NOTE | 2020-09-06 17:55 | NUR ---
HAD DIALYSIS TODAY. TOLERAED WELL. DOES NOT SEEM TO BE IN PAIN OR DISRESS. PLEASANT WITH CARE. STATES SHE FEELS MUCH BETTER.
--- NOTE | 2020-09-07 01:49 | NUR ---
pt keeps wanting to switch between the bipap and the nasal cannula. she has been [place] [facility] [place] tonight. she has requested many food items. she has many requests constantly. turned off cardizem tonight. Her hear rate has been under control tonight with the exeption of when she was up to the c, her heart rate increased to the 130's. continues on iv antibiotics.
[2020-09-07 05:12] VITALS: BP 100/45
[2020-09-07 09:07] VITALS: BP 114/74
[2020-09-07 12:25] VITALS: BP 113/59
--- NOTE | 2020-09-07 16:36 | NUR ---
PT USED LESS OXYGEN TODAY WAS STEPPED DOWN TO 2L. O2 AT 96%. PLEASAN WITH CARE. WILL CONT TO MONITOR AND ASSIST NEEDED.
[2020-09-07 17:13] VITALS: BP 135/84
[2020-09-07 19:40] VITALS: BP 119/60
[2020-09-08 03:51] VITALS: BP 119/68
--- NOTE | 2020-09-08 05:06 | NUR ---
NO SIGNIFICANT EVENTS DURING THE NIGHT. PT CAN BE FORGETFUL AT TIMES. NO C/O PAIN. SHE OCCASSIONALLY C/O SOA. NO RESPIRATORY DISTRESS NOTED. BREATHING TREATMENTS GIVEN PER RT. SPO2 >90% ON 2-3L NC. PT SLEPT OFF AND ON DURING THE NIGHT. WHEN AWAKE, SHE CALLS OUT FREQUENTLY TO THE NURSES STATION. VSS. AFEBRILE. PROGRESSING SLOWLY TOWARD POC GOALS.
--- NOTE | 2020-09-08 07:12 | HC ---
[facility] [place] [address] CONSULTATION Name: AYLIN MORALES Room #: 349-I ADM IN M.R.#: [id number] Admission: 09/04/20 Attend Phys: Shaquille Rousseau MD Discharge: Date of : 68 Report #: [id number] THIS REPORT FOR: cc: Franki Bhakta MD, Srinath MD Barry,Murali Belcher MD ~ DATE OF SERVICE: 09/07/2020 INFECTIOUS DISEASE CONSULTATION ATTENDING PHYSICIAN: Dr. Parker. REASON FOR EVALUATION: Pneumonitis. HISTORY OF SUBJECTIVE: Chart reviewed, the patient examined. This is a 50-year-old with extensive medical history diabetes mellitus complicated by end-stage renal disease, on dialysis, who lives in a facility, presented to the Emergency Room on the with progressive dyspnea, noted she had missed a dialysis treatment, had been previously known to have exposure to COVID-19 positive testing. On evaluation, she was noted to be borderline hypoxemic. Chest x-ray did show cardiomegaly, perihilar infiltrates, question of some pulmonary edema, was found to have creatinine consistent with her renal failure of 11.0, lactic acid was in normal range of 0.6. ProBNP 43,500. Procalcitonin 0.32. She was confirmed to have positive PCR coronavirus. She was empirically started on combination of therapy versus possible bacterial pneumonitis given vancomycin and Zosyn latter was continued. She is quite lethargic at this point. She does arouse. She states she actually feels better. She is maintained on 3 liters of nasal cannula oxygen, which is improved from previous, which was 6. She has got a poor appetite. ALLERGIES: None known. MEDICATIONS: Currently include sertraline, atorvastatin, amiodarone, diltiazem CD, metoprolol, apixaban, guaifenesin, pantoprazole, Zosyn, ipratropium and albuterol inhaler, dexamethasone. PAST MEDICAL HISTORY: As noted above, diabetes mellitus type 2, history of hypertension, asthma, end-stage renal disease on hemodialysis, morbid obesity, history of previous DVT, PE. SOCIAL HISTORY: Nonsmoker, no ethanol. FAMILY HISTORY: Noncontributory. [facility] [address] [place] [address] CONSULTATION Name: AYLIN MORALES Room #: 349-I [facility] IN [facility].#: [id number] Admission: 09/04/20 Attend Phys: Shaquille Rousseau MD Discharge: Date of : 68 Report #: [id number] REVIEW OF SYSTEMS: Limited due to encephalopathy and somnolence. PHYSICAL EXAMINATION: GENERAL: She appears chronically ill. She is in mjev-ls-stbfvdbd distress. She is morbidly obese. VITAL SIGNS: Temperature 97.8, pulse 86, respirations 22, blood pressure 114/74. SKIN: Warm, dry, no rashes. HEENT: Normocephalic. Extraocular muscles are intact. NECK: Supple. Nasal cannula oxygen in place. LUNGS: Diminished breath sounds throughout. Does have some rales at the bases anteriorly and laterally. HEART: Distant, appears regular. I do not appreciate any murmur. ABDOMEN: Obese, soft, no apparent peritoneal signs. GENITOURINARY AND RECTAL: Deferred. LABORATORY DATA: Recent CBC from yesterday white count of 2.3, H and H 8.3 and 25.4, platelets of 157. Blood cultures from the 3rd, one out of two with Gram-positive cocci. Electrolytes most recently sodium 138, potassium 5.3, chloride 101, bicarbonate 25, anion gap of 12, BUN and creatinine 80 and 8.3, this is post-dialysis I believe on the 4th. Coronovirus-19 PCR was positive. ASSESSMENT: COVID-19 positive, potentially complicated by secondary bacterial pneumonitis given the timing I can tell based on the chart. Based on discussion with her, although she is somewhat limited in her recollection seems unlikely that this is a direct result of the coronavirus. We will continue empiric therapy with Zosyn and vancomycin on board as well. We will add additional vitamins to her medical regimen. She does remain quite tenuous at this point. We will continue to monitor expectantly, certainly at risk for nosocomial related infectious complications. We will add incentive spirometry as she is able. I do not believe the blood culture is significant at this point. As there are more fevers, may recheck those given the 1 out of 2 and then likely this is a skin related bacteria, likely contaminant. <ELECTRONICALLY SIGNED> By: Murali Cruz MD 09/08/20 0712 1030 1049 Murali Cruz MD /nt
[2020-09-08 08:44] VITALS: BP 112/57
[2020-09-08 12:00] VITALS: BP 121/74
[2020-09-08 16:00] VITALS: BP 82/62
--- NOTE | 2020-09-08 16:15 | NUR ---
MEGGAN reviewed chart and spoke with nursing and attending physician. Pt remains in Enhanced Isolation due to COVID-19. Pt is afebrile and on 2L of O2. Pt is on IV abx and IV steroids. associate media planner to fax clinical updates to [facility] for review. MEGGAN updated Laura in admissions. MEGGAN requested therapy evals. MEGGAN left voice message for pt's niece, Brendon, to provide update. Plan is for pt to return to [facility] when medically stable. MEGGAN is following to assist as needed with discharge planning.
[2020-09-08 17:00] VITALS: BP 127/64
[2020-09-08 18:11] LABS: HEMATOCRIT 26.4 % (37.0-47.0); HEMOGLOBIN 8.5 gm/dL (12.0-15.0); MCH 29.6 pg (26.0-34.0); MCHC 32.3 g/dL (28.0-37.0); MCV 91.5 fL (80.0-100.0); RBC 2.89 mil/uL (4.20-5.00); RDW 15.5 % (10.5-14.5)
[2020-09-08 18:24] LABS: ALBUMIN 2.8 g/dL (3.4-5.0); CALCIUM 9.4 mg/dL (8.5-10.1); CREATININE 5.2 mg/dL (0.6-1.0); PHOSPHORUS 3.1 mg/dL (2.5-4.9); POTASSIUM 5.3 mmol/L (3.5-5.1)
--- NOTE | 2020-09-08 19:00 | NUR ---
PATIENT IS PROGRSSING SL TOWARDS OUTCOME GOALS O2 SAT IN THE UPPER 90'S ON O2 AT 2L/NC. POOR APPITITE. HEMODIAYSIS IN PROGRESS.
[2020-09-08 22:00] VITALS: BP 123/41
[2020-09-09 00:51] VITALS: BP 107/48
--- NOTE | 2020-09-09 00:59 | NUR ---
PT IS ALERT AND ORIENTED X4. VSS AFEBRILE AFTER DIALYSIS. ARMS ARE OBESE. IT IS DIFFICULT TO GET HER BP. LAST BP WNL. SATS CURRENTLY 100%. RESPIRAIONS UNLABORED ON O22LNC. C/O GODOY. MEDICATED WITH 2 TYLENOL. PRESENTLY SHE IS SLEEPING QUIETLY.
[2020-09-09 05:37] VITALS: BP 104/52
--- NOTE | 2020-09-09 05:48 | NUR ---
Pt progressing slowly towards d/c goals VSS. NO S/S DISTRESS. INC STOOL X1 MOISTURE BARRIER APPLIED PER CNAS. C/O GODOY PAIN. MEDICATED WITH TYLENOL. PT SLEEPINGF QUIETLY UNLABORED ON 2LNC.
[2020-09-09 07:47] VITALS: BP 168/74
[2020-09-09 08:40] VITALS: BP 168/74
--- NOTE | 2020-09-09 10:49 | NUR ---
AFIB PER TELE. DENIES CP. ANOTHER SHORT DIALYSIS TODAY. POSSIBLE DISCHARGE BACK TO [facility]. FALL PRECAUTIONS, ISOLATION IN PLACE.
[2020-09-09] MEDS ORDERED: VITAMIN C1000 MG PO (13:06)
[2020-09-09] MEDS ORDERED: VITAMIN B-1100 M2 PO (13:06)
[2020-09-09] MEDS ORDERED: AUGMENTIN 500-1 EACH PO (13:06)
[2020-09-09] MEDS ORDERED: COMBIVENT RESPIM4 GM INH (13:06)
[2020-09-09] MEDS ORDERED: MUCINEX600 MG PO (13:06)
[2020-09-09] MEDS ORDERED: ZINC SULFATE 2220 MG PO (13:06)
[2020-09-09] MEDS ORDERED: PREDNISONE 10 M10 M1 PO (13:06)
[2020-09-09] MEDS ORDERED: METOPROLOL SUCC50 MG PO (13:06)
--- NOTE | 2020-09-09 13:34 | NUR ---
DISCHARGE NOTE: SW reviewed chart and spoke with nursing and attending physician. Pt remains in Enhanced Isolation due to COVID-19. Pt is medically stable to discharge back to [place] today. Pt does not need dialysis today, as her regular schedule is at [facility]. business planner facilitated discharge and notified pt's family. Transportation scheduled for [id number]. MEGGAN provided pt's nurse with number for report. Chart copy requested. No further SW needs identified at this time, but is available to assist should needs arise.
== END 2020-09-09 13:43 | DRG 871 ==
LOC: ER 17:37 → 3W 19:29 → EROBS 19:29 → 3W 20:51
PROVIDERS: Internal Medicine; Nurse Practitioner Family; Physician Assistant; ADMIT Hospitalist; ATTEND Hospitalist
DX: A41.9 Sepsis, unspecified organism (principal); U07.1 COVID-19; N18.6 End stage renal disease; E43 Unspecified severe protein-calorie malnutrition; J12.89 Other viral pneumonia; J96.21 Acute and chronic respiratory failure with hypoxia; J96.22 Acute and chronic respiratory failure with hypercapnia; I48.20 Chronic atrial fibrillation, unspecified; Z68.42 Body mass index [BMI] 45.0-49.9, adult; J44.0 Chronic obstructive pulmonary disease with (acute) lower respiratory infection; I12.0 Hypertensive chronic kidney disease with stage 5 chronic kidney disease or end stage renal disease; E11.22 Type 2 diabetes mellitus with diabetic chronic kidney disease; J45.909 Unspecified asthma, uncomplicated; E66.01 Morbid (severe) obesity due to excess calories; E21.3 Hyperparathyroidism, unspecified; D63.8 Anemia in other chronic diseases classified elsewhere; E87.70 Fluid overload, unspecified; E78.5 Hyperlipidemia, unspecified; Z87.891 Personal history of nicotine dependence; Z79.01 Long term (current) use of anticoagulants; Z86.718 Personal history of other venous thrombosis and embolism; Z86.711 Personal history of pulmonary embolism; Z83.3 Family history of diabetes mellitus; Z91.19 Patient's noncompliance with other medical treatment and regimen; Z99.3 Dependence on wheelchair; Z99.2 Dependence on renal dialysis
CPT/HCPCS: 10879; 32100

== ENCOUNTER 2020-09-14 16:08 | Inpatient (IN) | payer OTHER ==
[~2020-09-14] VITALS: Ht 157.5 cm; Wt 110.7 kg
[~2020-09-14 16:08] MED LIST changes: +AUGMENTIN 500-1 EACH PO; +COMBIVENT RESPIM4 GM INH; +MUCINEX600 MG PO; +PREDNISONE 10 M10 M1 PO; +VITAMIN B-1100 M2 PO; +VITAMIN C1000 MG PO; +ZINC SULFATE 2220 MG PO
[2020-09-14 16:10] VITALS: BP 215/48
[2020-09-14 17:04] LABS: URINE BILIRUBIN NEGATIVE (Negative); URINE BLOOD 3+ (Negative); URINE CLARITY CLEAR; URINE COLOR YELLOW; URINE GLUCOSE-RANDOM* TRACE (Negative); URINE KETONES TRACE (Negative); URINE NITRITE-REFLEX NEGATIVE (Negative); URINE PROTEIN (DIPSTICK) 3+ (Negative); URINE SPECIFIC GRAVITY 1.015 (1.005-1.035); URINE UROBILINOGEN 0.2 E.U./dl (0.2-1.0)
[2020-09-14 17:10] LABS: SSA (PROTEIN CONFIRMATORY) 3+ (APPROX. 200-500) mg/dL (Negative); URINE LEUKOCYTES-REFLEX 2+ (Negative)
[2020-09-14 17:12] LABS: CASTS None Seen /LPF (None Seen); CRYSTALS None Seen /LPF (None Seen); SQUAMOUS 0-3 Few /LPF (0-3); URINE RBC >20 Many /HPF (0-2)
[2020-09-14 17:13] LABS: BACTERIA-REFLEX 1-9 Few /HPF (None Seen)
[2020-09-14 18:09] LABS: ABSOLUTE NEUTROPHILS 8.6 thou/uL (1.4-8.2); BASOPHILS 0.5 % (0.0-2.0); EOSINOPHILS 0.6 % (0.0-3.0); HEMATOCRIT 25.8 % (37.0-47.0); HEMOGLOBIN 8.3 gm/dL (12.0-15.0); LYMPHOCYTES 1.2 % (24.0-44.0); MCH 30.3 pg (26.0-34.0); MCHC 32.2 g/dL (28.0-37.0); MCV 93.9 fL (80.0-100.0); PLATELET COUNT 172 thou/uL (150-400); POLYS 94.7 % (36.0-66.0); RBC 2.75 mil/uL (4.20-5.00); RDW 16.6 % (10.5-14.5); WBC 9.1 thou/uL (4.0-11.0)
[2020-09-14 18:30] LABS: CALCIUM 9.6 mg/dL (8.5-10.1); CREATININE 10.3 mg/dL (0.6-1.0); TROPONIN-I 0.08 ng/mL (<0.06)
[2020-09-14 18:35] LABS: POTASSIUM 6.4 mmol/L (3.5-5.1)
[2020-09-14 19:14] LABS: BE(vivo) -2.3 mmol/L (-2 to +3); PCO2 41.9 mmHg (35.0-45.0); PO2 51.9 mmHg (80.0-100.0); pH 7.358 (7.360-7.450); sO2 85.4 % (92.0-98.0)
[2020-09-15 01:21] LABS: HEMATOCRIT 26.5 % (37.0-47.0); HEMOGLOBIN 8.3 gm/dL (12.0-15.0); MCH 29.7 pg (26.0-34.0); MCHC 31.5 g/dL (28.0-37.0); MCV 94.1 fL (80.0-100.0); RBC 2.81 mil/uL (4.20-5.00); RDW 16.6 % (10.5-14.5); WBC 6.8 thou/uL (4.0-11.0)
[2020-09-15 02:37] LABS: CREATININE 10.4 mg/dL (0.6-1.0); MAGNESIUM 2.4 mg/dL (1.8-2.4); TROPONIN-I 0.08 ng/mL (<0.06)
[2020-09-15 02:39] LABS: POTASSIUM 6.1 mmol/L (3.5-5.1)
[2020-09-15 07:56] VITALS: BP 151/50
[2020-09-15 11:56] VITALS: BP 97/73
--- NOTE | 2020-09-15 14:15 | NUR ---
CALLED TO INFORM LEROY OF LOW BLOOD PRESSURE AFTER GIVING DILTIAZEM, NO NEW ORDERS AT THIS TIME. CALLED TO CONSULT WITH CARDOLOGY- LEFT MESSAGE WITH DOCTOR
[2020-09-15 16:00] VITALS: BP 92/42
--- NOTE | 2020-09-15 16:03 | NUR ---
CONTACTED DAVID TO REQUEST A DIFFERENT BREATHING TREATMENT DUE TO WHAT IS ORDERED WOULD INCREASE THE ALREADY ELVEATED HEART RATE
[2020-09-15 20:57] VITALS: BP 108/89
[2020-09-15 23:58] VITALS: BP 101/41
[2020-09-16 04:02] VITALS: BP 148/61
[2020-09-16 09:11] VITALS: BP 131/87
[2020-09-16 13:00] VITALS: BP 91/75
--- NOTE | 2020-09-16 16:58 | NUR ---
PT IS FROM [facility] SPOKE WITH JAVED IN ADM AT FACILITY SHE REQUESTED A CLINICAL UPDATE. DP FAXED UPDATE AND RECEIVED CONFIRMATION.
[2020-09-16 18:07] VITALS: BP 131/74
--- NOTE | 2020-09-16 19:54 | NUR ---
PT'S EJ WAS DISLODGED ACCIDENTLY. IV TEAM PAGED FOR ACCESS
--- NOTE | 2020-09-16 22:06 | NUR ---
AFTER MULTIPLE ATTEMPST BY SEVERAL RNS, UNABLE TO GET IV ACCESS. IV TEAM WAS PAGED EARLIER AND NOTIFIED THAT PT LOST IV AND NEEDED ANOTHER ONE BUT UNABLE TO GET AHOLD OF FOR ACCESS. CURRENTLY NO ACCESS.
[2020-09-16 22:24] VITALS: BP 152/68
[2020-09-17] VITALS (7 sets, daily range): BP systolic 103–189; BP diastolic 52–126
--- NOTE | 2020-09-17 18:27 | NUR ---
PATIENT ADMIT TO UNIT AT 1545. A/O X4. ON AMLO GTT AT 16.6L/ML. SR ON MONITOR. NO DISDRESS NOTED. WILL KEEP MONITOR
--- NOTE | 2020-09-17 22:55 | NUR ---
pt care assumed with pt in bed watching tv.pt is a/o x4.pt appeared to no in no acute distress.pt on amio gtt.pt has a godinez catheter in place.pt on 3l of O2.pt transfer to [facility] and not on covid precautions.
[2020-09-18 01:43] VITALS: BP 105/50
[2020-09-18 04:08] VITALS: BP 105/48
--- NOTE | 2020-09-18 04:14 | NUR ---
PT TRANSFERREDFROM 3W, COVID NEGATIVE. A0 X 4. DENIES PAIN, NAUSEA OR VOMITING. SR ON THE MONITOR WITH AMIODARONE DRIP AT 0.5 MG/HR. NO OTHER CONCERNS. WILL CONTINUE WITH CURRENT POC.
[2020-09-18 04:54] LABS: ALBUMIN 3.3 g/dL (3.4-5.0); CALCIUM 9.4 mg/dL (8.5-10.1); CREATININE 5.9 mg/dL (0.6-1.0); PHOSPHORUS 4.6 mg/dL (2.6-4.7); POTASSIUM 4.2 mmol/L (3.5-5.1)
--- NOTE | 2020-09-18 07:15 | NUR ---
BPCI LETTER ISSUED TO PATIENT IN CONJUNCTION WITH ADMISSION PACKET COPY GIVEN BY REGISTRATION
[2020-09-18 07:28] VITALS: BP 132/42
[2020-09-18 11:20] VITALS: BP 136/64
[2020-09-18 15:05] VITALS: BP 146/57
--- NOTE | 2020-09-18 16:04 | NUR ---
Pt is a ltc resident at [facility]. They are holding her bed and have been notified that the pt may be dc ready tomorrow. Pt will need w/c van ride back to the half-way and her niece will need to be notified. Will follow.
[2020-09-18 20:03] VITALS: BP 127/57
[2020-09-19 03:07] VITALS: BP 115/50
--- NOTE | 2020-09-19 04:35 | NUR ---
Assumed pt care at 1900. Pt is alert and oriented. No sign of distress noted in pt. Assessment completed and documented. Fall precaution in place. Scheduled meds administered to pt. No acute events overnight. Denies pain. No further needs at this time.
[2020-09-19 07:36] VITALS: BP 120/39
[2020-09-19] MEDS ORDERED: CEFUROXIME250 MG PO (10:46)
[2020-09-19 11:06] VITALS: BP 150/71
[2020-09-19 15:39] VITALS: BP 109/45
--- NOTE | 2020-09-19 16:41 | NUR ---
Pt is dcing back to [facility] under her skilled medicare benefits. They have arranged for a stretcher van transport at 5:30pm this evening. The dc material planner has faxed the dc orders to the facility and notified her niece. Nursing updated. Chart copy is ready to be sent with the pt and nursing to call report.
--- NOTE | 2020-09-19 18:23 | NUR ---
ASSUMED CARE AT CHANGE OF SHIFT. ALERTX3 FROM [facility]ILL[facility]ACILILTY. DENIES SOB, DENIES CHEST PAIN, GODOY PAIN MANAGED WITH MEDICATIONS. 3L NASAL CANNULA IS HER BASLINE. NSR ON TELE. DIALYSYS //. LAST DIALYSIS WAS 09/18. UP WITH MODERAT ASSISTANCE. PT DC BACK TO FACILITY TONIGHT. WAITING FOR TRANSPORTATION. IV AND TELE REMOVED.
--- NOTE | 2020-09-22 07:54 | EKG ---
[address] [address] ELECTROCARDIOGRAM REPORT Name: AYLIN MORALES Room #: 213-P [facility] IN ..#: [id number] Admission: 09/14/20 Attend Phys: Shaquille Rousseau MD Discharge: 09/19/20 Date of : 68 Report #: [id number] [facility] ED Test Date: 2020-09-14 Test Time: 16:14:40 Pat Name: AYLIN MORALES Department: Room: 170 Gender: F Lamp Cleaner: ABDIAZIZ : 1970 Requested By: Joaquim Thomason Order Number: [id number] MD: Jairo Welch Measurements Intervals [place] Rate: 103 P: 27 OR: 139 QRS: 25 QRSD: 92 T: 36 QT: 342 QTc: 448 Interpretive Statements Sinus tachycardia Probable left atrial enlargement Compared to ECG 09/04/2020 18:32:49 Atrial fibrillation no longer present Electronically Signed On 09-15-2020 7:22:54 STRATEGY SPECIALIST by Jairo Welch [email or web address] <ELECTRONICALLY SIGNED> By: Jairo Welch MD, [facility] 09/15/20 0722 1614 13 Jairo Welch MD, FACC /EPI
== END 2020-09-19 21:26 | DRG 871 ==
LOC: ER 16:08 → EROBS 19:11 → 2N 19:11 → EROBS 09-15 07:42 → 3W 09-17 16:25 → 2N 09-17 23:00
PROVIDERS: Emergency Medicine; Hospitalist; Internal Medicine Nephrology; Nurse Practitioner Family; ADMIT Internal Medicine; ATTEND Internal Medicine
PROC: 5A1D70Z Performance of Urinary Filtration, Intermittent, Less than 6 Hours Per Day (ICD-10-PCS; principal; 2020-09-15)
PROC: 5A1D70Z Performance of Urinary Filtration, Intermittent, Less than 6 Hours Per Day (ICD-10-PCS; 2020-09-16)
PROC: 5A1D70Z Performance of Urinary Filtration, Intermittent, Less than 6 Hours Per Day (ICD-10-PCS; 2020-09-18)
DX: A41.9 Sepsis, unspecified organism (principal); I50.33 Acute on chronic diastolic (congestive) heart failure; U07.1 COVID-19; N18.6 End stage renal disease; J96.21 Acute and chronic respiratory failure with hypoxia; G92 Toxic encephalopathy; N39.0 Urinary tract infection, site not specified; Z68.41 Body mass index [BMI] 40.0-44.9, adult; I13.2 Hypertensive heart and chronic kidney disease with heart failure and with stage 5 chronic kidney disease, or end stage renal disease; J45.909 Unspecified asthma, uncomplicated; E66.01 Morbid (severe) obesity due to excess calories; I48.91 Unspecified atrial fibrillation; E11.22 Type 2 diabetes mellitus with diabetic chronic kidney disease; J44.9 Chronic obstructive pulmonary disease, unspecified; D64.9 Anemia, unspecified; D69.6 Thrombocytopenia, unspecified; T38.0X5A Adverse effect of glucocorticoids and synthetic analogues, initial encounter; Y92.89 Other specified places as the place of occurrence of the external cause; Z86.718 Personal history of other venous thrombosis and embolism; Z86.711 Personal history of pulmonary embolism; Z91.19 Patient's noncompliance with other medical treatment and regimen; Z79.899 Other long term (current) drug therapy; Z99.2 Dependence on renal dialysis; E87.5 Hyperkalemia
CPT/HCPCS: 10081; 32100

== ENCOUNTER 2020-09-21 20:26 | Emergency (ER) | payer OTHER ==
[~2020-09-21] VITALS: Ht 157.5 cm; Wt 114.9 kg
[~2020-09-21 20:26] MED LIST changes: +CEFUROXIME250 MG PO
[2020-09-21] MEDS ORDERED: ZOFRAN ODT4 MG PO (22:15)
[2020-09-22 00:24] VITALS: BP 95/76
== END 2020-09-22 00:40 | disposition home or self-care (01) ==
LOC: ER 20:26
DX: R11.2 Nausea with vomiting, unspecified (principal); R52 Pain, unspecified; R00.0 Tachycardia, unspecified; E11.22 Type 2 diabetes mellitus with diabetic chronic kidney disease; I12.0 Hypertensive chronic kidney disease with stage 5 chronic kidney disease or end stage renal disease; N18.6 End stage renal disease; Z99.2 Dependence on renal dialysis; J45.909 Unspecified asthma, uncomplicated; E66.01 Morbid (severe) obesity due to excess calories; Z68.42 Body mass index [BMI] 45.0-49.9, adult; Z79.899 Other long term (current) drug therapy; Z79.4 Long term (current) use of insulin

== ENCOUNTER 2021-01-11 09:28 | Emergency (ER) | payer OTHER ==
[~2021-01-11] VITALS: Ht 157.5 cm; Wt 88.5 kg
--- NOTE | ~2021-01-11 | EMS ---
[address] [address] EMS Patient Care Report Name: AYLIN MORALES Room #: DEP [place]#: [id number] Admission: 01/11/21 Attend Phys: Discharge: 01/11/21 Date of : 68 Report #: [id number] THIS REPORT FOR: //name// Report Transmitted: 01/11/2021 21:28 EMS Care Summary [place], [place]/[facility] Incident [id number] @ 01/11/2021 08:56 Incident Location [id number] [place] [address] 606 Patient AYLIN MORALES Female, 50 Years 1970 Patient Address [address] [place] [address] [address] [place] [address] Patient History Cardiac Arrythmia,Hypertension (HTN),Kidney/Renal Failure,End Stage Renal Disease (ESRD),Morbid Obesity,Depression,Dialysis,Chronic Kidney Disease,Type 2 Diabetes,Novel Coronavirus (COVID-19), Patient Allergies No known allergies, Patient Medications Novolog, Atorvastatin, Eliquis, Cardizem, Meclizine, Combivent, Hydroxyzine, Levemir, Lorazepam, Unknown, Chief Complaint I'm SOB Disposition Transported No Lights/[facility]patch Reason Breathing Problem Transported To [facility] [address] [place] [address] EMS Patient Care Report Name: AYLIN MORALES Room #: DEP [facility]#: [id number] Admission: 01/11/21 Attend Phys: Discharge: 01/11/21 Date of : 68 Report #: [id number] Called for SOB. Upon arrival, pt was BABCOCK x 3 sitting in her bed with O2 in minor distress. Pt stated she has been SOB since last night along with itching all over. Pt did dialysis last Tuesday, full tx. [facility] staff reported SaO2 was 89% even with her O2. Pt moved to the EMs cot and loaded into the ambulance w/o incident. 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 O2 cont. Vitals repeated. En route: no changes. RR to ER. Arrived: pt taken to ER #9 and moved to their bed w/o incident. Pt care & report to ER staff. Initial Vitals @09:10P: 111,R: 24,BP: 166/75,Pain: 2/10,GCS: 15,CO: 0,SpO2: 99,Revised Trauma: 12, @09:15P: 106,R: 20,BP: 176/93,Pain: 2/10,GCS: 15,SpO2: 100,Revised Trauma: 12, Assessments @08:59MENTAL:Person Oriented,Time Oriented,Place Oriented,Event Oriented,SKIN:Other,HEENT:Eyes: Left Pupil: 3-mm,Eyes: Right Pupil: 3-mm,LUNG SOUNDS:ABDOMEN:PELVIS//GI:No Abnormalities,EXTREMITIES:Left Arm: Other,Right Arm: No Abnormalities,Left Leg: No Abnormalities,Right Leg: No Abnormalities,PULSE:Radial: 2+ Normal,NEURO:No Abnormalities, Impression Acute Respiratory Distress (Dyspnea) Procedures @08:59ALS AssessmentResponse: UnchangedSucceeded@09:05StretcherResponse: Unchanged@PTAOxygen FlowRate: 3 Device: Nasal Cannula (NC) Response: UnchangedSucceeded Timeline ELEVATOR MECHANIC APPRENTICE,Oxygen FlowRate: 3 Device: Nasal Cannula (NC) Response: UnchangedSucceeded, 08:52,Call Received 08:52,Dispatch Notified 08:56,Dispatched 08:56,En Route 08:58,On Scene 08:59,At Patient 08:59,ALS Assessment,Response: UnchangedSucceeded, 09:05,Stretcher,Response: Unchanged 09:10,BP: 166/75 M,PULSE: 111,RR: 24 R,SPO2: 99 Ox,ETCO2: ,BG: ,PAIN: 2,GCS: 15, 09:11,Depart Scene 09:15,BP: 176/93 M,PULSE: 106,RR: 20 R,SPO2: 100 Ox,ETCO2: ,BG: ,PAIN: 2,GCS: 15, 09:18,At Destination 10:06,Call Closed [facility] [address] [place] [address] EMS Patient Care Report Name: AYLIN MORALES Room #: DEP [place]#: [id number] Admission: 01/11/21 Attend Phys: Discharge: 01/11/21 Date of : 68 Report #: [id number] Disclaimer v1.1 Copyright 2020 [employer] This EMS Care Summary contains data elements from the applicable legal record (which may be displayed differently). It is designed to provide pertinent information for the following purposes: continuity of care, clinical quality, and state data reporting. The complete legal record is available to ED staff and administrators of the receiving hospital in [employer] Patient Tracker. All data is provided "as is."
[2021-01-11] MEDS ORDERED: HYDROXYZINE HCL25 M2 PO (11:12)
[2021-01-11] MEDS ORDERED: CARDIZEM120 MG PO (11:13)
[2021-01-11] MEDS ORDERED: LORAZEPAM 0.50.5 MG PO (11:14)
[2021-01-11] MEDS ORDERED: MECLIZINE HCL25 M1 PO (11:18)
[2021-01-11] MEDS ORDERED: FERRIC CITRATE210 MG PO (11:19)
[2021-01-11] MEDS ORDERED: SENSIPAR 30 MG30 M1 PO (11:20)
[2021-01-11] MEDS ORDERED: LIPITOR 20 MG T20 M1 PO (11:22)
[2021-01-11] MEDS ORDERED: NOVOLOG100 UNIT/M SUBQ (11:23)
[2021-01-11] MEDS ORDERED: LEVEMIR100 UNIT/1 SUBQ (11:24)
[2021-01-11] MEDS ORDERED: ELIQUIS5 MG PO (11:24)
[2021-01-11] MEDS ORDERED: COMBIVENT INH (11:25)
[2021-01-11 11:33] LABS: ABSOLUTE NEUTROPHILS 7.1 thou/uL (1.4-8.2); BASOPHILS 0.8 % (0.0-2.0); EOSINOPHILS 19.1 % (0.0-3.0); HEMATOCRIT 31.5 % (37.0-47.0); HEMOGLOBIN 9.8 gm/dL (12.0-15.0); LYMPHOCYTES 7.4 % (24.0-44.0); MCH 28.1 pg (26.0-34.0); MCHC 31.1 g/dL (28.0-37.0); MCV 90.4 fL (80.0-100.0); MONOCYTES 9.3 % (1.0-8.0); PLATELET COUNT 282 thou/uL (150-400); POLYS 63.4 % (36.0-66.0); RBC 3.49 mil/uL (4.20-5.00); RDW 16.2 % (10.5-14.5); WBC 11.3 thou/uL (4.0-11.0)
[2021-01-11 11:41] LABS: CALCIUM 10.2 mg/dL (8.5-10.1); POTASSIUM 5.7 mmol/L (3.5-5.1)
[2021-01-11 11:48] LABS: ALBUMIN 3.3 g/dL (3.4-5.0); DIRECT BILIRUBIN 0.2 mg/dL (<0.1-0.2); TOTAL BILIRUBIN 0.6 mg/dL (0.2-1.0); TOTAL PROTEIN 6.8 g/dL (6.4-8.2)
[2021-01-11 14:34] VITALS: BP 179/85
== END 2021-01-11 14:34 ==
LOC: ER 09:28
PROVIDERS: Emergency Medicine
DX: R06.00 Dyspnea, unspecified (principal); L29.9 Pruritus, unspecified; J45.909 Unspecified asthma, uncomplicated; E11.22 Type 2 diabetes mellitus with diabetic chronic kidney disease; I12.0 Hypertensive chronic kidney disease with stage 5 chronic kidney disease or end stage renal disease; N18.6 End stage renal disease; Z99.2 Dependence on renal dialysis; Z86.2 Personal history of diseases of the blood and blood-forming organs and certain disorders involving the immune mechanism; Z79.899 Other long term (current) drug therapy; Z79.4 Long term (current) use of insulin

== ENCOUNTER 2021-01-18 12:43 | Inpatient (IN) | payer OTHER ==
[~2021-01-18] VITALS: Ht 157.5 cm; Wt 105.0 kg
--- NOTE | ~2021-01-18 | EMS ---
[address] [address] EMS Patient Care Report Name: AYLIN MORALES Room #: 170-3 ADM IN M.R.#: [id number] Admission: 01/18/21 Attend Phys: Austin Carter MD Discharge: Date of : 68 Report #: [id number] THIS REPORT FOR: //name// Report Transmitted: 01/18/2021 14:08 EMS Care Summary [place], [place]/[facility] Incident [id number] @ 01/18/2021 12:12 Incident Location [id number] [place] [address] Patient AYLIN MORALES Female, 50 Years 1970 Patient Address [id number] [place] [address] [address] [place] [address] Patient History Cardiac Arrythmia,Diabetes,Hypertension (HTN),Kidney/Renal Failure,End Stage Renal Disease (ESRD),Morbid Obesity,Depression,Dialysis,Chronic Kidney Disease,Type 2 Diabetes,Novel Coronavirus (COVID-19), Patient Allergies No known allergies, Patient Medications Hydroxyzine, Unknown, Combivent, Atorvastatin, Cardizem, Eliquis, Novolog, Meclizine, Levemir, Lorazepam, Chief Complaint itchy Disposition Transported No Lights/[place] Dispatch Reason Sick Person Transported To [facility] [address] [place] [address] EMS Patient Care Report Name: AYLIN MORALES Room #: 170-3 ADM IN [facility]#: [id number] Admission: 01/18/21 Attend Phys: Austin Carter MD Discharge: Date of : 68 Report #: [id number] Arrived to find pt in bed. RN stated pt had dialysis on Tuesday but only completed 20 minutes instead of 4 hours. RN did give a reason why pt did not finish dialysis on Tue and pt only stated because she was "too itchy". Pt states she is itchy all over and vomited a water like substance today. Pt is AOx3. Pt stands and sits on cot where she is secured with cot straps and placed in a surgical mask. Pt placed in back of unit. Pt transported without incident. Care to RN, rm 3. Initial Vitals @12:32P: 128,BP: 164/134,SpO2: 98, @12:30P: 121,R: 18,BP: 163/86,Pain: 0/10,GCS: 15,Temp: 97.2F,Glucose: 94,Revised Trauma: 12, Assessments @12:25MENTAL:Time Oriented,Person Oriented,Event Oriented,Place Oriented,SKIN:HEENT:Head/Face: No Abnormalities,Neck/Airway: No Abnormalities,LUNG SOUNDS:General: No Abnormalities,Left Upper: No Abnormalities,Right Upper: No Abnormalities,Left Lower: No Abnormalities,Right Lower: No Abnormalities,ABDOMEN:General: No Abnormalities,Left Upper: No Abnormalities,Right Upper: No Abnormalities,Left Lower: No Abnormalities,Right Lower: No Abnormalities,PELVIS//GI:Pelvis GUOther,EXTREMITIES:Capillary Refill: Right Upper: < 2 Sec,Left Arm: No Abnormalities,Right Arm: No Abnormalities,Left Leg: No Abnormalities,Right Leg: No Abnormalities,PULSE:Radial: 2+ Normal,NEURO:No Abnormalities, Impression Nausea Procedures @12:25ALS AssessmentResponse: UnchangedSucceeded@PTAOxygen FlowRate: 2 Device: Nasal Cannula (NC) Succeeded Timeline SUPREME COURT JUSTICE,Oxygen FlowRate: 2 Device: Nasal Cannula (NC) Succeeded, 12:11,Call Received 12:11,Dispatch Notified 12:12,Dispatched 12:14,En Route 12:21,On Scene 12:25,At Patient 12:25,ALS Assessment,Response: UnchangedSucceeded, 12:30,BP: 163/86 M,PULSE: 121,RR: 18 R,SPO2: Ox,ETCO2: ,B,PAIN: 0,GCS: 15, 12:32,BP: 164/134 M,PULSE: 128,RR: R,SPO2: 98 Ox,ETCO2: ,BG: ,PAIN: ,GCS: , 12:34,Depart Scene 12:41,At Destination [address] [address] EMS Patient Care Report Name: AYLIN MORALES Room #: 170-3 ADM IN M.R.#: [id number] Admission: 01/18/21 Attend Phys: Austin Carter MD Discharge: Date of : 68 Report #: [id number] 12:48,Call Closed Disclaimer v1.1 Copyright 2020 [employer] This EMS Care Summary contains data elements from the applicable legal record (which may be displayed differently). It is designed to provide pertinent information for the following purposes: continuity of care, clinical quality, and state data reporting. The complete legal record is available to ED staff and administrators of the receiving hospital in [employer] Patient Tracker. All data is provided "as is."
[~2021-01-18 12:43] MED LIST changes: +CARDIZEM120 MG PO; +COMBIVENT INH; +HYDROXYZINE HCL25 M2 PO; +LEVEMIR100 UNIT/1 SUBQ; +LORAZEPAM 0.50.5 MG PO; +NOVOLOG100 UNIT/M SUBQ
[2021-01-18 12:49] VITALS: BP 182/84
[2021-01-18] MEDS ORDERED: HYDROCORTISONE30 GM TOP (12:58)
[2021-01-18] MEDS ORDERED: LORAZEPAM 0.50.5 MG PO (12:59)
[2021-01-18] MEDS ORDERED: MIDODRINE HCL 55 M1 PO (13:00)
--- NOTE | 2021-01-18 13:09 | NUR ---
UNABLE TO OBTAIN IV ACCESS. IV TEAM CALLED
[2021-01-18 13:26] LABS: HEMATOCRIT 29.3 % (37.0-47.0); HEMOGLOBIN 9.2 gm/dL (12.0-15.0); MCH 28.4 pg (26.0-34.0); MCHC 31.5 g/dL (28.0-37.0); MCV 90.1 fL (80.0-100.0); PLATELET COUNT 290 thou/uL (150-400); RBC 3.25 mil/uL (4.20-5.00); WBC 11.7 thou/uL (4.0-11.0)
[2021-01-18 13:28] LABS: ALBUMIN 3.6 g/dL (3.4-5.0); CALCIUM 10.2 mg/dL (8.5-10.1); CREATININE 15.5 mg/dL (0.6-1.0); TOTAL BILIRUBIN 0.6 mg/dL (0.2-1.0); TOTAL PROTEIN 7.1 g/dL (6.4-8.2)
[2021-01-18 13:30] LABS: POTASSIUM 6.8 mmol/L (3.5-5.1)
[2021-01-18 14:00] LABS: POLYCHROMASIA SLIGHT; SCHISTOCYTES FEW; TARGET CELLS OCCASIONAL; TEARDROPS 1+
[2021-01-18 14:01] LABS: ANISOCYTOSIS SLIGHT; LARGE PLATELETS RARE
[2021-01-18 14:11] LABS: BE(vivo) -0.1 mmol/L (-2 to +3); HCO3 25.2 mmol/L (22.0-26.0); PCO2 43.7 mmHg (35.0-45.0); PO2 91.8 mmHg (80.0-100.0); pH 7.378 (7.360-7.450); sO2 96.9 % (92.0-98.0)
[2021-01-18 15:40] VITALS: BP 182/84
[2021-01-18 17:09] VITALS: BP 98/64
[2021-01-18 17:37] VITALS: BP 157/89
--- NOTE | 2021-01-18 18:09 | NUR ---
PATIENT ADMITED TO UNIT AT 1725 FROM ER. A/O X4. VSS 02 SAT 100% ON 3L/NC. PATIENT C/O ITCHING ALL OVER. WILL KEEP MONITOR.
[2021-01-18 19:27] VITALS: BP 148/91
[2021-01-19 01:32] VITALS: BP 118/59
[2021-01-19 04:20] VITALS: BP 142/119
--- NOTE | 2021-01-19 05:28 | NUR ---
Pt. didn't sleep much during the night.C/O itching all over , benadryl given. She still is very anxious and hollering. FISH CLEANER notified and one time dose of hydroxyzine given with some relief. Complete bed bath given and lotion applied all over body , no rashes found. Zofran given x 1 for dry heaving with some relief. O2 at 3L/NC with O2 sat up to 98%. She requested for breathing tx , FISH CLEANER notified and order for prn breathing tx received. RT notified of new order who gave her tx and stated it did help.
[2021-01-19 07:32] VITALS: BP 149/71
--- NOTE | 2021-01-19 09:38 | EKG ---
[place] [address] [facility] [place] [address] ELECTROCARDIOGRAM REPORT Name: AYLIN MORALES Room #: 361-P ADM IN M.R.#: [id number] Admission: 01/18/21 Attend Phys: Austin Carter MD Discharge: Date of : 68 Report #: [id number] [facility] ED Test Date: 2021-01-18 Test Time: 13:07:37 Pat Name: AYLIN MORALES Department: Room: [facility] Gender: F Trial Paralegal: MAX : 1970 Requested By: Gladys Hernandez Order Number: [id number] MD: Roderick Montalvo Measurements Intervals [place] Rate: 128 P: NC: QRS: 32 QRSD: 95 T: 32 QT: 319 QTc: 466 Interpretive Statements Atrial flutter with variable AV block Nonspecific ST segment abnormality Compared to ECG 09/14/2020 16:14:40 Atrial flutter has replaced sinus rhythm Electronically Signed On 01-19-2021 9:38:44 CDT by Roderick Montalvo [email or web address] <ELECTRONICALLY SIGNED> By: Roderick Montalvo MD, [facility] 01/19/21 0938 06 06 Roderick Montalvo MD, [facility] /EPI
--- NOTE | 2021-01-19 13:28 | NUR ---
PT IS FROM [facility] FAXED CLINICAL UPDATE SPOKE WITH TEE IN ADM HE RECEIVED UPDATE ALSO NOTIFIED OF POSS DC TOMORROW.
[2021-01-19 16:27] VITALS: BP 162/119
--- NOTE | 2021-01-19 16:27 | NUR ---
ASSESSMENT: CM REVIEWED CHART. PT ADMITS FROM [facility] DUE TO GENERALIZED PRURITUS. PT HAS HX ESRD AND GETS DIALYSIS M/W/TUE. PT IS LTC RESIDENT AT [facility] AND PLANS TO RETURN THERE UPON DISCHARGE. MCKENNA SPOKE WITH PATIENTS NIECE/DPOA FAAIU TO UPDATE AND SHE IS AGREEABLE WITH DISCHARGE PLAN. MEDICAID PLAN COMPLIANCE DIRECTOR TO FAX CLINICAL TO FACILITY. MCKENNA SPOKE WITH TEE IN ADMISSIONS [phone] TO NOTIFY HIM OF POSSIBLE DISCHARGE TOMORROW. CM WILL CONTINUE TO FOLLOW TO ASSIST NEEDED.
[2021-01-19 19:20] VITALS: BP 146/70
[2021-01-20 04:05] VITALS: BP 137/89
--- NOTE | 2021-01-20 05:17 | NUR ---
Pt. c/o itchiness at HS. Benadryl given around 2300 and hydroxyzine given around 0200. Hydrocortisone cream also applied to back area per her request. Up to commode with assist x1 and had large bm. She slept better last night and didn't holler as much as she did the night before. O2 at 2L/NC with O2 sat in the mid to upper 90's. Shortness of breath with exertion. Progressing towards discharge goals.
[2021-01-20 07:18] VITALS: BP 152/60
[2021-01-20 07:49] VITALS: BP 152/60
--- NOTE | 2021-01-20 11:59 | NUR ---
PT BLLOD GLUCOSE IN AM WAS 38, POT ALERTA AND ORIENTED. DEXTROSE IV PUSH GIVEN PT BLOOD GLUCOSE 230. ASSESSSMENT COMPLETED. DENADRYL GIVEN FOR ITCHING. DENEIS ANY OTHERS NEEDS. FALL PRECAUTIONS IN PLACE. ANTICIPATING FOR DISCHARGE TODAY.
--- NOTE | 2021-01-20 13:06 | NUR ---
DISCHARGE NOTE: MEGGAN reviewed chart and spoke with nursing and attending physician. Pt is medically stable to return to [facility] today. mission planner to coordinate and notify family. SW is available to assist should needs arise.
--- NOTE | 2021-01-20 14:09 | NUR ---
PT DISCHARGING TODAY TO [facility] SKILLED FAXED DC ORDERS/SUMMARY TO FACILITY SPOKE WITH TEE IN ADM HE RECEIVED ORDERS AND ARRANGED STRETCHER VAN FOR 1500 TODAY. NOTIFIED PT'S NIECE (CARLY) OF DC AND TIME OF TRANSPORT SHE IS IN AGREEMENT WITH DC. NOTIFIED UNIT AND CHART COPY PER US. RN TO CALL REPORT TO [phone].
--- NOTE | 2021-01-20 15:38 | NUR ---
PT BRIANDA BACK TO [facility], DANTE D/C. ALL BELONGINGS PACKED. CALLED [facility] TO GIVE, WAS KODY NURSE WILL CALL ME BACK.
== END 2021-01-20 15:39 | DRG 682 ==
LOC: ER 12:43 → 3W 14:43 → EROBS 14:43 → 3W 17:10
PROVIDERS: Nurse Practitioner Family; ADMIT Hospitalist; ATTEND Hospitalist
DX: I12.0 Hypertensive chronic kidney disease with stage 5 chronic kidney disease or end stage renal disease (principal); N18.6 End stage renal disease; R65.11 Systemic inflammatory response syndrome (SIRS) of non-infectious origin with acute organ dysfunction; J96.00 Acute respiratory failure, unspecified whether with hypoxia or hypercapnia; Z68.41 Body mass index [BMI] 40.0-44.9, adult; E87.5 Hyperkalemia; E11.22 Type 2 diabetes mellitus with diabetic chronic kidney disease; J45.909 Unspecified asthma, uncomplicated; E66.01 Morbid (severe) obesity due to excess calories; L29.8 Other pruritus; E83.39 Other disorders of phosphorus metabolism; E87.70 Fluid overload, unspecified; L50.9 Urticaria, unspecified; Z91.15 Patient's noncompliance with renal dialysis; Z86.718 Personal history of other venous thrombosis and embolism; Z86.711 Personal history of pulmonary embolism; Z79.899 Other long term (current) drug therapy
CPT/HCPCS: 10779; 10879; 32100